=== PATIENT | female | born 1945 | race Caucasian/White ===

== ENCOUNTER → 2017-12-14 12:22 | Outpatient (CLI) | payer MEDICARE, OTHER, SELFPAY ==
--- NOTE | 2017-12-14 | DI.US.S_ITS ---
ULTRASOUND GUIDED BIOPSY LEFT BREAST USING VACUUM DEVICE WITH MARKING DEVICE INSERTED: 12/14/2017 CLINICAL: Left breast mass. PATIENT CONSENT: Risks (minor bleeding, infection, vasovagal reaction and repeat procedure), benefits and alternatives were explained to the patient and written informed consent was obtained. Correlation is made to exams dated: 11/16/2017 mammogram, 11/16/2017 mammogram, 05/18/2017 ultrasound, 04/22/2017 ultrasound, 04/22/2017 mammogram, and 04/08/2017 mammogram - [facility]. An ultrasound guided biopsy using real-time ultrasound was performed for the 0.6 cm x 0.4 cm x 0.4 cm lesion located in the left breast at 3 o'clock anterior depth. The skin was prepped in the usual manner. Local anesthetic was administered to the access site. The abnormality was approached from the lateral aspect. A biopsy needle was placed adjacent to the abnormality under ultrasound guidance. Once the needle was documented to be in the correct location, a specimen was obtained using the Mammotome biopsy system. A clip was inserted into the biopsy cavity. The specimen was sent to the laboratory for pathological analysis. IMPRESSION: ULTRASOUND GUIDED BIOPSY Ultrasound guided biopsy of the 0.6 cm x 0.4 cm x 0.4 cm lesion in the left breast at 3 o'clock anterior depth was successful. Report from pathology states that no tissue was received and therefore no analysis can be performed. Findings were discussed with Enrique, chef's assistant of imaging at [facility]. He will arrange for the patient to return for repeat sampling at no charge. This exam was interpreted at Station ID: [id number]. Bacilio gifford,cj/:12/22/2017 08:37:49
--- NOTE | 2017-12-14 | PATH_ITS ---
[facility] Accession Number: [id number] . 01 Material submitted: . LT BREAST . 01 Clinical history: . 2:30 6 CMFN . 02 Diagnosis: LEFT BREAST NOTIFIED DR. EDWARD (RADIOLOGY) NO SAMPLE IN VIAL. HE WILL INFORM DR BRITO WHOM COLLECTED THE SAMPLE. - JEG 12/17/2017 JEG/12/17/2017 . 02 Electronically signed: . Ebony Benedict MD, Pathologist NPI- [id number] . 01 Gross description: . LT BREAST: Received is a jar containing formalin. No tissue is identified. /TRC /TRC . 02 Pathologist provided ICD-10: N63.0 . 02 CPT . 638177 Performed at: 01 [facility] [address] [id number] MD Joaquín Tse MD Phone: [phone] Performed at: 02 [facility] [address] [place], [place] [id number] MD Thomas Phipps MD Phone: [phone]
--- NOTE | 2017-12-14 | DI.MG.S_ITS ---
UNILATERAL LEFT DIAGNOSTIC MAMMOGRAM POST-NEEDLE BIOPSY: 12/14/2017 CLINICAL: Left breast cyst. Post clip placement. Comparison is made to exams dated: 12/14/2017 ultrasound biopsy, 11/16/2017 mammogram, 04/22/2017 mammogram, and 04/08/2017 mammogram - [facility]. The tissue of the left breast is heterogeneously dense. This may lower the sensitivity of mammography. There is a marker clip in the appropriate position in the left breast at 2 o'clock anterior depth. This marker clip placement is at biopsy site. IMPRESSION: POST PROCEDURE MAMMOGRAM FOR MARKER PLACEMENT There was a successful marker clip placement in the left breast anterior depth. This exam was interpreted at Station ID: [id number]. NOTE: For mammograms, a report in lay terms will be sent to the patient. Approximately 15% of breast malignancies will not be visualized mammographically. In the management of a palpable breast mass, a negative mammogram must not discourage biopsy of a clinically suspicious lesion. Electronically Signed By: Bacilio gifford/:12/14/2017 17:31:36 ACR BI-RADS Category Post-procedure mammogram for marker placement
== END ==
PROVIDERS: PCP Internal Medicine; Visit Provider Internal Medicine
DX: R92.8 Other abnormal and inconclusive findings on diagnostic imaging of breast (principal); N60.02 Solitary cyst of left breast
CPT/HCPCS: 19083; 77065; 88300

== ENCOUNTER → 2017-12-30 13:14 | Outpatient (CLI) | payer MEDICARE, OTHER, SELFPAY ==
--- NOTE | 2017-12-30 | DI.US.S_ITS ---
PROCEDURE: US BX BREAST PERC W VAC DEVICE COMPARISON: [facility], , BX BREAST PERC W VAC DEVICE, 12/14/2017, 12:57. INDICATIONS: LEFT BREAST CYST FINDINGS: IMPRESSION: Dictated by: Cleveland Hernández M.D. on 12/30/2017 at 17:05 Approved by: Cleveland Hernández M.D. on 12/30/2017 at 17:08
--- NOTE | 2017-12-30 | PATH_ITS ---
[facility] Accession Number: [id number] . 01 Material submitted: . LT BREAST 2:30 . 01 Clinical history: . 6CM FROM NIPPLE . 02 Diagnosis: Breast Mass at 2:30, 6 cm from Nipple, Left, Ultrasound Guided Needle Core Biopsy: Benign breast parenchyma with features of fibrocystic change, including cystic dilatation of terminal ductules, stromal fibrosis, ductal hyperplasia without atypia, and apocrine metaplasia. A prominent apocrine cyst (approximately 3 mm in diameter) and a sclerosed papilloma (approximately 2 mm in diameter) are present. Negative for atypia or malignancy. [facility]/12/31/2017 . 02 Electronically signed: . Patty Hickman MD, Pathologist NPI- [id number] . 01 Gross description: . Received one formalin-filled container, labeled with the patient's name, designated breast 2:30 6 cm from nipple. The specimen is received with a plastic filter in the container, sample loose in container. The specimen consists of multiple yellow-thompson portions of tissue and blood which aggregate to 2.0 x 0.6 x 0.3 cm. Collection date: 12/30/2017. Collection time per container: 2:25. Total fixation time: 12 hours, up to 24. (DC:[id number]) /FRR . 02 Pathologist provided ICD-10: N60.12 . 02 CPT . 657030 Performed at: 01 [facility] [address] [id number] MD Joaquín Tse MD Phone: [phone] Performed at: 02 [facility] [address] [place], [place] [id number] MD Thomas Phipps MD Phone: [phone]
--- NOTE | 2017-12-30 | DI.MG.S_ITS ---
UNILATERAL LEFT DIGITAL DIAGNOSTIC MAMMOGRAM POST-NEEDLE BIOPSY: 12/30/2017 CLINICAL: Left breast cyst. Post clip placement. Comparison is made to exams dated: 12/14/2017 mammogram, 11/16/2017 mammogram, and 04/22/2017 mammogram - [facility]. The tissue of the left breast is heterogeneously dense. This may lower the sensitivity of mammography. There is a marker clip in the appropriate position in the left breast at 2 o'clock middle depth. This marker clip placement is at biopsy site. Please note, the previously present marker was removed during the biopsy. IMPRESSION: POST PROCEDURE MAMMOGRAM FOR MARKER PLACEMENT There was a successful marker clip placement in the left breast middle depth. This exam was interpreted at Station ID: [id number]. NOTE: For mammograms, a report in lay terms will be sent to the patient. Approximately 15% of breast malignancies will not be visualized mammographically. In the management of a palpable breast mass, a negative mammogram must not discourage biopsy of a clinically suspicious lesion. Electronically Signed By: Cleveland Hernández M.D. cj/:12/30/2017 17:09:47 ACR BI-RADS Category Post-procedure mammogram for marker placement
== END ==
PROVIDERS: PCP Internal Medicine; Visit Provider Internal Medicine
DX: N60.02 Solitary cyst of left breast (principal); R92.8 Other abnormal and inconclusive findings on diagnostic imaging of breast
CPT/HCPCS: 19083; 77065; 88305

== ENCOUNTER 2018-04-08 20:18 | Inpatient (IN) | payer MEDICARE, OTHER, SELFPAY ==
[2018-04-08 20:33] VITALS: BP 149/87; PULSE 88; RESP 24; TEMP 36.5; O2SAT 96; BMI 21.9
[2018-04-08 21:00] VITALS: BP 144/77; PULSE 92; RESP 19; O2SAT 93
--- NOTE | 2018-04-08 21:00 | ED_ITS ---
HPI - SOB/Dyspnea General Chief Complaint: Shortness of Breath/Dyspnea Stated Complaint: SOB HARD TIME SWALLOWING Time Seen by Provider: 04/08/18 20:32 Source: family and old records reviewed History of Present Illness The patient is a 72-year-old female with history of MS here with her . He has noticed that over the last couple days she has had increased secretions and shallow breathing. He has not noted any fever. She he she has had some difficulty swallowing and has a hard time getting all of her secretions up. He has not noted any significant mental status changes. He is mostly concerned with her breathing. She denies any pain MD Complaint: shortness of breath and cough Related Data Home Medications Medication Instructions Recorded Confirmed citalopram [Celexa] 10 mg PO QDAY #0 09/08/12 04/08/18 levothyroxine [Synthroid] 0.025 mg PO 4XW #0 09/08/12 04/08/18 methenamine hippurate 1 gm PO DAILY #0 09/08/12 04/08/18 polyethylene glycol 3350 [Miralax] 17 gm PO Q DAY #0 09/08/12 04/08/18 ascorbic acid (vitamin C) [Vitamin 1 g PO Q6H 04/08/18 04/08/18 C] baclofen 10 mg PO BID 04/08/18 04/08/18 glatiramer [Copaxone] 40 mg SUBCUT 3XW 04/08/18 04/08/18 levothyroxine 38 mcg PO 3XW 04/08/18 04/08/18 Allergies Allergy/AdvReac Type Severity Reaction Status Date / Time clonazepam [CLONAZEPAM] Allergy Unknown Unverified 10/27/17 11:57 gabapentin [GABAPENTIN] Allergy Unknown Unverified 10/27/17 11:57 hydrochlorothiazide Allergy Unknown Unverified 10/27/17 11:57 [HYDROCHLOROTHIAZIDE] lamotrigine [LAMOTRIGINE] Allergy Unknown Unverified 10/27/17 11:57 levetiracetam [From KEPPRA] Allergy Unknown Unverified 10/27/17 11:57 methylphenidate Allergy Unknown Unverified 10/27/17 11:57 [METHYLPHENIDATE] modafinil [MODAFINIL] Allergy Unknown Unverified 10/27/17 11:57 omega-3 acid ethyl esters Allergy Unknown Unverified 10/27/17 11:57 [OMEGA-3 ACID ETHYL ESTERS] phenazopyridine Allergy Unknown Unverified 10/27/17 11:57 [PHENAZOPYRIDINE] ciprofloxacin [CIPROFLOXACIN] AdvReac Unknown Unverified 10/27/17 11:57 Sulfa (Sulfonamide AdvReac Unknown Unverified 10/27/17 11:57 Antibiotics) [SULFA (SULFONAMIDE ANTIBIOTICS)] Review of Systems Review of Systems All systems reviewed & are unremarkable except as noted in HPI and below Constitutional Denies body ache(s), Denies excessive sweating and Denies fever(s) Cardiovascular Denies chest pain Respiratory Reports as per HPI, Reports cough and Reports excessive phlegm production Gastrointestinal Gastrointestinal: Denies abdominal pain, Denies nausea and Denies vomiting Genitourinary Comments: Chronic [place]ague catheter alternating Keflex with Macrobid every other month, currently on Keflex Integumentary/Breasts Denies pruritus, Denies erythema, Denies rash and Denies wounds Neurologic Reports as per HPI Endocrine Denies excessive sweating PFSH Medical History CVA (cerebral vascular accident) (Acute) Hyperlipidemia (Acute) Hypothyroid (Acute) Multiple sclerosis (Acute) Neurogenic bladder (Acute) Surgical History 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 RESPIRATORY: Decreased breath sounds bilaterally mild rales more on left than right ABDOMEN: Soft, nontender. Normoactive bowel sounds all 4 quadrants. No guarding or rebound. : Montague catheter in place EXTREMITIES: Normal range of motion, no clubbing or edema. Neurovascularly intact NEUROLOGICAL: Alert and oriented x3. Profound lower extremity weakness. At baseline per SKIN: Warm, dry, no laceration, no petechiae, no rashes or lesions. Course Orders Ordered: ED Orders 04/08/18 21:08 Consult to Respiratory Therapy Evaluate & Treat 04/08/18 21:09 XR chest 1V Stat 04/08/18 21:30 B Type Natriuretic Peptide Stat Complete Blood Count AUTO DIFF Stat Comprehensive Metabolic Panel Stat Lactate (Lactic Acid) Stat Magnesium Stat Procalcitonin Stat 04/08/18 22:02 Blood Culture Stat 04/08/18 22:35 Urinalysis and Microscopic Stat Urine Culture Stat Discontinued Medications Ceftriaxone Sodium/Dextrose (Rocephin) 1 gm in 50 mls @ 100 mls/hr IV NOW ONE Stop: 04/08/18 22:53 Last Infusion: 04/09/18 00:07 Dose: 0 mls/hr Admin: 04/08/18 23:35 Dose: 100 mls/hr Azithromycin 500 mg/ Dextrose 250 mls @ 250 mls/hr IV NOW ONE Stop: 04/08/18 22:25 Last Admin: 04/09/18 01:30 Dose: 250 mls/hr Vital Signs - 8 hr 04/08/18 22:00 04/08/18 23:00 04/09/18 00:03 Temperature Pulse Rate 91 H 92 H 88 Respiratory Rate 18 19 18 Blood Pressure Blood Pressure [Left Arm] 154/83 H 162/84 H 157/87 H Pulse Oximetry 94 95 95 04/09/18 00:20 04/09/18 05:15 Temperature 98.4 F 97.5 F L Pulse Rate 86 87 Respiratory Rate 16 17 Blood Pressure 157/94 H 128/71 Blood Pressure [Left Arm] Pulse Oximetry 94 93 MDM - SOB/Dyspnea Lab Data Attestation: I reviewed the patient's lab results. Result diagrams: 04/08/18 21:30 04/08/18 21:30 Lab Results 04/08/18 04/08/18 04/08/18 Range/Units 21:30 21:30 21:30 WBC 11.2 H (4.5-11.0) X10^3/uL RBC 4.21 (4.0-5.2) X10^6/uL Hgb 15.1 (12.0-16.0) g/dL Hct 43.9 (36-46) % MCV 104.4 H (80-100) fL MCH 35.9 H (26-34) PG MCHC 34.4 (30-36) % RDW 13.9 (11.6-14.8) % Plt Count 154 (150-400) X10^3/uL Neut % (Auto) 53.1 (50-75) % Lymph % (Auto) 35.2 (25-40) % [place] % (Auto) 8.4 (3-14) % Eos % (Auto) 2.6 (2-4) % Baso % (Auto) 0.7 (0-2) % Neut # (Auto) 6000 H (9086-6185) /uL Sodium 143 (137-145) mmol/L Potassium 4.3 (3.4-5.1) mmol/L Chloride 99 (98-107) mmol/L Carbon Dioxide 33 H (22-32) mmol/L BUN 16 (7-17) mg/dL Creatinine 0.80 (0.52-1.04) mg/dL Estimated GFR > 60.0 (>60) mL/min BUN/Creatinine Ratio 20.0 (6-22) Glucose 132 H (80-110) mg/dL Lactate (0.7-2.1) mmol/L Calcium 9.8 (8.4-10.2) mg/dL Magnesium 1.7 (1.6-2.3) mg/dL Total Bilirubin 0.3 (0.2-1.3) mg/dL AST 47 H (14-36) IU/L ALT 49 (9-52) IU/L Alkaline Phosphatase 129 H (38-126) U/L B-Natriuretic Peptide 41.3 (<100) Total Protein 7.7 (6.3-8.2) g/dL Albumin 4.4 (3.5-5.0) g/dL Globulin 3.3 (1.7-4.1) g/dL Albumin/Globulin Ratio 1.3 (1.0-2.8) Procalcitonin < 0.05 (<0.5) ng/mL Urine Color Urine Appearance Urine pH (4.5-8.0) Ur Specific [place] (1.000-1.035) Urine Protein (Negative) Urine Glucose (UA) (Normal) g/dL Urine Ketones (NEGATIVE) Urine Occult Blood (Negative) Urine Nitrate (Negative) Urine Bilirubin (NEGATIVE) Urine Urobilinogen (0.2) E.U./dL Ur Leukocyte Esterase (NEGATIVE) Urine RBC (0-5/HPF) Urine WBC (0-5/HPF) Ur Squamous Epith Cells Urine Bacteria (None) Ur Culture Indicated? Micro UA Comment 04/08/18 04/08/18 Range/Units 21:30 22:35 WBC (4.5-11.0) X10^3/uL RBC (4.0-5.2) X10^6/uL Hgb (12.0-16.0) g/dL Hct (36-46) % MCV (80-100) fL MCH (26-34) PG MCHC (30-36) % RDW (11.6-14.8) % Plt Count (150-400) X10^3/uL Neut % (Auto) (50-75) % Lymph % (Auto) (25-40) % [place] % (Auto) (3-14) % Eos % (Auto) (2-4) % Baso % (Auto) (0-2) % Neut # (Auto) (1549-8176) /uL Sodium (137-145) mmol/L Potassium (3.4-5.1) mmol/L Chloride (98-107) mmol/L Carbon Dioxide (22-32) mmol/L BUN (7-17) mg/dL Creatinine (0.52-1.04) mg/dL Estimated GFR (>60) mL/min BUN/Creatinine Ratio (6-22) Glucose (80-110) mg/dL Lactate 1.6 (0.7-2.1) mmol/L Calcium (8.4-10.2) mg/dL Magnesium (1.6-2.3) mg/dL Total Bilirubin (0.2-1.3) mg/dL AST (14-36) IU/L ALT (9-52) IU/L Alkaline Phosphatase (38-126) U/L B-Natriuretic Peptide (<100) Total Protein (6.3-8.2) g/dL Albumin (3.5-5.0) g/dL Globulin (1.7-4.1) g/dL Albumin/Globulin Ratio (1.0-2.8) Procalcitonin (<0.5) ng/mL Urine Color Yellow Urine Appearance Cloudy Urine pH 7.5 (4.5-8.0) Ur Specific [place] 1.015 (1.000-1.035) Urine Protein Negative (Negative) Urine Glucose (UA) Negative (Normal) g/dL Urine Ketones Negative (NEGATIVE) Urine Occult Blood 1+ H (Negative) Urine Nitrate Negative (Negative) Urine Bilirubin Negative (NEGATIVE) Urine Urobilinogen 0.2 (0.2) E.U./dL Ur Leukocyte Esterase 3+ H (NEGATIVE) Urine RBC 0-1/hpf (0-5/HPF) Urine WBC 30-100/hpf H (0-5/HPF) Ur Squamous Epith Cells 0-1 /hpf Urine Bacteria Many (>30) H (None) Ur Culture Indicated? Specimen cultured Micro UA Comment Not Reportable Imaging Data Chest x-ray: My impression: [address] [address] XRay Report Signed Patient: Rosa Reynolds MR#: [id number] : 1945 Acct:[id number] Age/Sex: 72 / F Date of Service: 04/08/18 Loc: ED Accession Number: [id number] Procedure: XR chest 1V Ordering Provider: Bridget Lucero D.O. PROCEDURE: XR CHEST 1V INDICATIONS: cough shortness of breath TECHNIQUE: One view of the chest was acquired. COMPARISON: [facility], , CHEST 1 VIEW, 10/09/2015, 7:44. FINDINGS: Surgical changes and devices: Surgical clips in the left upper quadrant of the abdomen. Lungs and pleura: No pleural effusions or pneumothorax. Mild interstitial prominence is noted which has a worsened interval since prior examination. Findings nonspecific may be related to pulmonary edema or atypical pneumonia. Mediastinum: Mediastinal contours appear normal. Heart size is normal. Bones and chest wall: No suspicious bony lesions. Overlying soft tissues appear unremarkable. IMPRESSION: Mild interstitial prominence. Finding is nonspecific, but can be related to pulmonary edema or atypical pneumonia. Dictated by: Sara Bullock MD, PhD on 04/08/2018 at 21:51 MDM Narrative Medical decision making narrative: Patient has multiple sclerosis and a weak cough. She is not need is functioning in the ED a however the has noticed over last couple days she is not able to get all of her secretions out. She is not hypoxic. She has had increased sputum production as, cough and shallow breathing. X-ray does confirm probable atypical pneumonia. She does not appear septic, minimal leukocytosis afebrile and normal lactic acid, she has not needed suctioning in the ED. However she has multiple comorbidities and will likely need close monitoring. I spoke with Dr. Johnson, he agrees with inpatient admission. Discharge Plan Departure Patient Disposition: Admitted As Inpatient Clinical Impression: Atypical pneumonia Discharge Date/Time: 04/09/18 00:05 Interventions: ED Discharge Assessment Last Done: 04/09/18 00:04 Admit Date/Time: 04/08/18 23:32 Admit Provider: Sharath Roberson
--- NOTE | 2018-04-08 21:09 | DI.RAD.S_ITS ---
PROCEDURE: XR CHEST 1V INDICATIONS: cough shortness of breath TECHNIQUE: One view of the chest was acquired. COMPARISON: [facility], , CHEST 1 VIEW, 10/09/2015, 7:44. FINDINGS: Surgical changes and devices: Surgical clips in the left upper quadrant of the abdomen. Lungs and pleura: No pleural effusions or pneumothorax. Mild interstitial prominence is noted which has a worsened interval since prior examination. Findings nonspecific may be related to pulmonary edema or atypical pneumonia. Mediastinum: Mediastinal contours appear normal. Heart size is normal. Bones and chest wall: No suspicious bony lesions. Overlying soft tissues appear unremarkable. IMPRESSION: Mild interstitial prominence. Finding is nonspecific, but can be related to pulmonary edema or atypical pneumonia. Dictated by: Sara Bullock MD, PhD on 04/08/2018 at 21:51 Approved by: Sara Bullock MD, PhD on 04/08/2018 at 21:52
[2018-04-08 21:41] LABS: Add Manual Diff / Slide Review NO; Basophils Percent Auto 0.7 % (0-2); Eosinophils Percent Auto 2.6 % (2-4); Hematocrit 43.9 % (36-46); Hemoglobin 15.1 g/dL (12.0-16.0); Lymphocytes Percent Auto 35.2 % (25-40); Mean Corpuscular HGB Conc 34.4 % (30-36); Mean Corpuscular Hemoglobin 35.9 PG (26-34); Mean Corpuscular Volume 104.4 fL (80-100); Monocytes Percent Auto 8.4 % (3-14); Neutrophils Absolute Auto 6000 /uL (3000-5900); Neutrophils Percent Auto 53.1 % (50-75); Platelet Count 154 X10^3/uL (150-400); Red Blood Cell Count 4.21 X10^6/uL (4.0-5.2); Red Cell Distribution Width 13.9 % (11.6-14.8); White Blood Cell Count 11.2 X10^3/uL (4.5-11.0)
[2018-04-08 21:51] LABS: Alanine Aminotransferase 49 IU/L (9-52); Albumin 4.4 g/dL (3.5-5.0); Albumin Globulin Ratio 1.3 (1.0-2.8); Alkaline Phosphatase 129 U/L (38-126); Aspartate Aminotransferase 47 IU/L (14-36); Bilirubin Total 0.3 mg/dL (0.2-1.3); Blood Urea Nitrogen 16 mg/dL (7-17); Calcium 9.8 mg/dL (8.4-10.2); Carbon Dioxide 33 mmol/L (22-32); Chloride 99 mmol/L (98-107); Estimated Glomerular Filt Rate > 60.0 mL/min (>60); Globulin 3.3 g/dL (1.7-4.1); Glucose 132 mg/dL (80-110); HEMOLYSIS 19 (0-50); Lactate (Lactic Acid) 1.6 mmol/L (0.7-2.1); Magnesium 1.7 mg/dL (1.6-2.3); Potassium 4.3 mmol/L (3.4-5.1); Sodium 143 mmol/L (137-145); Total Protein 7.7 g/dL (6.3-8.2)
[2018-04-08 22:00] VITALS: BP 154/83; PULSE 91; RESP 18; O2SAT 94
[2018-04-08 22:04] LABS: B Type Natriuretic Peptide 41.3 (<100)
[2018-04-08 22:12] LABS: Procalcitonin < 0.05 ng/mL (<0.5)
[2018-04-08 22:55] LABS: Appearance Urine UA CLOUDY; Bilirubin Urine UA NEGATIVE (NEGATIVE); Color Urine UA YELLOW; Glucose Urine UA NEGATIVE (Normal); Ketones Urine UA NEGATIVE (NEGATIVE); Leukocyte Esterase Urine UA 3+ (NEGATIVE); Nitrite Urine UA Negative (Negative); Occult Blood Urine UA 1+ (Negative); Protein Urine UA NEGATIVE (Negative); Specific Gravity Urine UA 1.015 (1.000-1.035); Urobilinogen Urine UA 0.2 E.U./dL (0.2); pH Urine UA 7.5 (4.5-8.0)
[2018-04-08 23:00] VITALS: BP 162/84; PULSE 92; RESP 19; O2SAT 95
[2018-04-08 23:02] LABS: Bacteria Urine Many (>30); Culture Indicated Urine Specimen Cultured; RBC Urine 0-1/HPF (0-5/HPF); Squamous Epithelial Cell Urine 0-1 /HPF; WBC Urine 30-100/HPF (0-5/HPF)
[2018-04-08] MEDS: CEFTRIAXONE 1 GM/50 ML FROZ.PIGGY IV (23:35)
[2018-04-08 23:41] VITALS: BMI 21.9
[2018-04-09] VITALS (9 sets, daily range): BP systolic 119–157; BP diastolic 71–94; PULSE 75–88; RESP 14–18; TEMP 36.3–36.9; O2SAT 91–95; BMI 21.9
[2018-04-09] MEDS: AZITHROMYCIN 500 MG in DEXTROSE 5% IN WATER 250 ML IV (01:30)
[2018-04-09 08:27] LABS: Hematocrit 42.2 % (36-46); Hemoglobin 14.5 g/dL (12.0-16.0); Mean Corpuscular HGB Conc 34.4 % (30-36); Mean Corpuscular Hemoglobin 35.5 PG (26-34); Mean Corpuscular Volume 103.2 fL (80-100); Platelet Count 144 X10^3/uL (150-400); Red Blood Cell Count 4.09 X10^6/uL (4.0-5.2); Red Cell Distribution Width 13.6 % (11.6-14.8); White Blood Cell Count 11.5 X10^3/uL (4.5-11.0)
[2018-04-09 08:37] LABS: BUN Creatinine Ratio 18.8 (6-22); Blood Urea Nitrogen 15 mg/dL (7-17); Calcium 9.9 mg/dL (8.4-10.2); Carbon Dioxide 31 mmol/L (22-32); Chloride 102 mmol/L (98-107); Estimated Glomerular Filt Rate > 60.0 mL/min (>60); Glucose 101 mg/dL (80-110); HEMOLYSIS < 15 (0-50); Sodium 143 mmol/L (137-145)
[2018-04-09 08:56] LABS: B Type Natriuretic Peptide 60.3 (<100)
[2018-04-09 08:59] LABS: Neutrophils Percent Auto 52.5 % (50-75)
[2018-04-09 09:00] LABS: Add Manual Diff / Slide Review NO; Basophils Percent Auto 0.9 % (0-2); Eosinophils Percent Auto 0.9 % (2-4); Lymphocytes Percent Auto 38.6 % (25-40); Monocytes Percent Auto 7.1 % (3-14); Neutrophils Absolute Auto 6 /uL (3000-5900)
--- NOTE | 2018-04-09 09:21 | PC.NURSE ---
late admit note 11-7 shift: pt to room 220 via stretcher w/2 assist into bed. pt w/eyes open, makes eye contact, answers simple direct questions but not able to give history or answer questions for admission form.no family present. posiitioned for comfort, initially no pain reported. iv LFA patent set up for Azithromycin infusion,no iv fluids ordered. body/extremities stiff r/t severe MS, speech is mostly clear, responses delayed, slow quiet voice.
[2018-04-09] MEDS: SCOPOLAMINE 1 PATCH TOP (10:16)
--- NOTE | 2018-04-09 10:20 | PC.NURSE ---
Pt resting in bed on her left side with head of bed elevated at 31 degrees. Pt denies needs at this time. Scopalamine patch placed behind left ear. O2 sat 91% on RA.
--- NOTE | 2018-04-09 13:01 | CM.DANOTE ---
Addendum entered by BENJAMIN Lorenz 04/09/18 15:14: ADD: Per RT, planning to call [employer] to determine if pt meets criteria for a cough assist device for home use per pt and spouse needs and request. RT will follow for ongoing needs. BF Original Note: Patient is a 72 year old female who was admitted on 04/08/18 for SOB, Swallow issues. Pt has [place] and [place] for insurance and her PCP is Dr. South. EMR was reviewed. Per MD, pt has significant multiple sclerosis at baseline and likely has some pneumonia and is mentally intact. MD had long discussion with spouse regarding possible need for tube feeding/PEG pending ST swallow eval and aspiration and spouse planning to have further discussion with pt regarding future plans for feeding needs and goals of care to help with deciding on possible comfort care in the future if pt is not able to maintain feedings without the use of feeding support. SW attempted bedside assessment but pt was sleeping very soundly and spouse was not bedside but plans to be back this afternoon. SW called spouse at home ([phone]) and explained role and he confirmed that they live at home in [place] and he is pt's primary Caregiver and helps her with most ADL's. Spouse states that he is pt's DPOA and will provide copy for pt's chart. Spouse denies any other services in place like HH or private pay caregivers and states he takes care of everything in the home and for the patient. Spouse is waiting for ST swallow eval to determine d/c needs and he seems very capable and supportive. Plan: SW to follow closely for ST swallow eval towards determining d/c planning needs. Spouse currently prefers pt to d/c home when medically stable but may be open to other services if needed. SW needs unclear at this time. BENJAMIN Lorenz Discharge Planning/Care Management CM Discharge Assessment Start: 04/09/18 12:57 Freq: Status: Active Protocol: Document 04/09/18 12:57 BF (Rec: 04/09/18 13:00 [id number]) Discharge Planning Assessment Assigned Logistics Engineering Manager BENJAMIN Duff DPOA/Assigned Designee Name Ijeoma Reynolds Contact Information [phone] Advance Directives? Yes: will bring in History Provided By Significant Other Medical Record Has Patient been admitted in last 30 No days? Prior Living Arrangements House Household Members spouse Type of transporation used prior to Relies on Others admit Comment Patient with significant M.S. and spouse provides most ADL support Independent with ADL's No: Spouse is pt's caregiver Is patient alert and oriented? Yes Needs Assistance With Bathing Eating Meal Prep Managing Medications Home Chores / Shopping Caregiver for Another No DME Already Rented / Owned Bath Bench Wheelchair FWW / Walker Comment Preference is home. Waiting ST swallow eval Barriers to Discharge Yes Discharge Plan Home Additional Comment Waiting for ST eval to determine d/c needs for feeding, etc.. Whiteboard Updated in Patient Room with No name and ext. # of Logistics Engineering Manager Comment Spoke with spouse via phone, whiteboard still to be updated . Review Status In Process Please Provide Date Initial DC 04/09/18 Assessment Was Performed Next Review Type Continued Stay Review
--- NOTE | 2018-04-09 15:01 | ST.IPIE ---
Care Team Visit Care Team Role Provider Type Rivera South MD Primary Care Provider Physician Specialty: Internal Medicine Address: [address] [place] [address] Email: Bridget Lucero DO Emergency Provider Physician Specialty: Emergency Medicine Address: [address] [place] [address] Email: Sharath Roberson MD Admit Provider Physician Attending Provider Specialty: Internal Medicine Address: [address] [place] [address] Email: Past Medical History (Last Updated 04/09/18 @ 05:27 by Bridget Lucero DO) CVA (cerebral vascular accident) (Acute Medical) Hyperlipidemia (Acute Medical) Hypothyroid (Acute Medical) Multiple sclerosis (Acute Medical) Neurogenic bladder (Acute Medical) ST IP Initial Evaulation Report APPRENTICE [facility] THIRD STEP Clinical Swallow Evaluation Start: 04/09/18 14:30 Freq: Status: Active Protocol: Document 04/09/18 14:31 LNK (Rec: 04/09/18 15:01 LNK [id number]) Clinical Swallow Evaluation Session Time Visit Start Time 13:15 Visit Stop Time 13:50 Total Visit Minutes [address] Johnson Reason for Referral Difficulty with swallowing Setting Assessment Location Acute Care Visit Type Note Type Initial Evaluation Next Note Type Next Note Type Re-Evaluation Patient Information Identification Type Name ID Wristband History The patient is a 72-year-old female with history of MS here with her . He has noticed that over the last couple days she has had increased secretions and shallow breathing. He has not noted any fever. She he she has had some difficulty swallowing and has a hard time getting all of her secretions up. Medical History CVA (cerebral vascular accident) (Acute) Hyperlipidemia (Acute) Hypothyroid (Acute) Multiple sclerosis (Acute) Neurogenic bladder (Acute) Subjective Observations Pt in bed sleeping. Easily awakened and agreed to swallow assessment. Pt presented with hyper tonic body position with head back and neck extended. When asked if she could move her head forward, she indicated I am stuck. Pt positioned in upright position. Evaluation Liquids Trialed Ice Chips Thin [place] Honey Solids Trialed Puree Administration Type Tea Spoon Dependent Feeding Oral Impairment Severely Impaired Oral Strategies Other Oral Phase Comments Pt demonstrated slow delayed movements for OM assessment. No gag reflex observed. Diadochokinesis was slow and delayed to begin. Pt has natural teeth in good condition. Pt was presented with an ice chip, which she chewed and swallowed. Teaspoons of thin nectar and honey thick liquid provided. Pt unable to cup tongue to collect liquid. All liquids rolled over tongue body to the pharynx. No control of liquids observed. Presentation of puree texture resulted in delayed onset of mastication with applesauce. Slow mastication with oral residue observed after swallow . Poor bolus formation and control. Pt eventually cleared oral residue. Pharyngeal Impairment Profoundly Impaired Pharyngeal Phase Comments Pt's swallow response was delayed and presented with audible gulpy swallow, indicating poor airway protection. Incomplete laryngeal elevation with limited hyoid excursion forward. pt's head position and the rapid flow of the over the tongue body was concerning. With liquid presented with a toothette, the pt appeared to swallow. Ice chip presented resulted in an aspirated episode. Face turned red. Pt demonstrated delayed cough response which was weak and non-productive. All trials appeared to be swallowed without cough; however vocal quality was wet. She had a gurgly non- productive cough following cue to cough. Findings Dysphagia Type Severe oropharyngeal dysphagia Rehabilitation Potential Poor Impressions Pt presented with severe oropharyngeal dysphagia secondary to advanced MS. Suspect silent aspiration of PO intake as well as pt's secretions. Recommend MBSS assessment to r/o silent aspiration. Unfortunately, radiology department is closed on weekends. Will continue with NPO status until MBSS can be completed Wednesday. Diet Recommendations Liquids Order NPO Diet Order NPO Treatment Plan Appropriate for Therapy No
--- NOTE | 2018-04-09 15:28 | P.HP_ITS ---
History of Present Illness Chief complaint: SOB HARD TIME SWALLOWING Narrative: The patient is a 72-year-old female with multiple sclerosis since 1985 and presents on admission with increased swallowing difficulty. Her dates the problem back to couple years ago however the past week it has become worse. In the past 2 days she has had increasing hacking cough and has had difficulty in coughing up the mucus. The states that she feels as though which she swallowed feels stuck in her throat at times. She has not had any increased shortness of breath tachypnea labored breathing. Discussion regarding PEG tubes was undertaken with the he states that she has had 2 of these in the past. For further discussion of PEG tube see assessment below Because of her increasing swelling difficulty she presented to the ED. In the ED her blood pressure is 149/87 pulse 88 respirations 24 temperature was 97.7? O2 sat was 96. Her CBC did reveal an elevated white count of 11.2. Her Chem panel revealed a AST of 47 alk-phos 129 and a glucose of 132. 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) Family & Social History Social History: household members spouse Prior Living Arrangements House lives independently No caregiver/support person Yes: Safety & Behavioral: Feels Safe in Current Yes Environment Been Physically Hurt or No Threatened By a Person Suicidal Ideation Description None Suicide Plan Description No Plan Tobacco & Substance use: Tobacco type cigarettes Smoking Status Former smoker alcohol intake never Substance Use Type does not use Meds Home Medications Medication Instructions Recorded Confirmed Type citalopram [Celexa] 10 mg PO QDAY #0 09/08/12 04/08/18 History levothyroxine [Synthroid] 0.025 mg PO 4XW #0 09/08/12 04/08/18 History methenamine hippurate 1 gm PO DAILY #0 09/08/12 04/08/18 History polyethylene glycol 3350 [Miralax] 17 gm PO Q DAY #0 09/08/12 04/08/18 History ascorbic acid (vitamin C) [Vitamin 1 g PO Q6H 04/08/18 04/08/18 History C] baclofen 10 mg PO BID 04/08/18 04/08/18 History glatiramer [Copaxone] 40 mg SUBCUT 3XW 04/08/18 04/08/18 History levothyroxine 38 mcg PO 3XW 04/08/18 04/08/18 History cephalexin 250 mg PO DAILY 04/09/18 04/09/18 History cholecalciferol (vitamin D3) 2,000 unit PO DAILY 04/09/18 04/09/18 History [Vitamin D3] furosemide 20 mg PO DAILY 04/09/18 04/09/18 History ibuprofen-diphenhydramine cit 1 cap PO BEDTIME 04/09/18 04/09/18 History [Advil PM] melatonin 5 mg PO BEDTIME 04/09/18 04/09/18 History multivitamin,tx-minerals 1 cap PO DAILY 04/09/18 04/09/18 History [Multi-Vitamin HP/Minerals] nitrofurantoin monohyd/m-cryst 100 mg PO DAILY 04/09/18 04/09/18 History pravastatin 20 mg PO DAILY 04/09/18 04/09/18 History Allergies Allergy/AdvReac Type Severity Reaction Status Date / Time omega-3 acid ethyl esters Allergy Intermediate acid Verified 04/09/18 09:03 [OMEGA-3 ACID ETHYL ESTERS] reflux reaction gabapentin [GABAPENTIN] Allergy Mild Drowsy Verified 04/09/18 09:03 clonazepam [CLONAZEPAM] Allergy Unknown Verified 04/09/18 09:03 hydrochlorothiazide Allergy Unknown Unverified 10/27/17 11:57 [HYDROCHLOROTHIAZIDE] lamotrigine [LAMOTRIGINE] Allergy Unknown Verified 04/09/18 09:03 levetiracetam [From KEPPRA] Allergy Unknown Verified 04/09/18 09:03 methylphenidate Allergy Unknown Unverified 10/27/17 11:57 [METHYLPHENIDATE] modafinil [MODAFINIL] Allergy Unknown Verified 04/09/18 09:03 phenazopyridine Allergy Unknown Verified 04/09/18 09:03 [PHENAZOPYRIDINE] Sulfa (Sulfonamide AdvReac Severe Hives Verified 04/09/18 09:03 Antibiotics) [SULFA (SULFONAMIDE ANTIBIOTICS)] ciprofloxacin [CIPROFLOXACIN] AdvReac Intermediate Verified 04/09/18 09:03 Review of Systems Review of Systems All systems reviewed & are unremarkable except as noted in HPI and below Exam Vital Signs (past 8 hours): - 04/09/18 07:50 04/09/18 11:45 Temperature 97.4 F L 97.7 F Pulse Rate 84 83 Respiratory Rate 14 14 Blood Pressure 142/78 H 119/73 Pulse Oximetry 91 91 Oxygen Delivery Method Room Air Narrative Exam Narrative: General frail cachectic chronically ill-appearing 72-year-old female in no acute distress HEENT normocephalic atraumatic extraocular movement was intact pupils were equal round reactive sclera were nonicteric fundi were not visualized oropharynx was clear Neck supple without thyromegaly bruits or jugular venous distention Respiratory on anterior auscultation no rales rhonchi or wheezes Cardiovascular regular rhythm S1-S2 was normal there are no lifts heaves rubs murmurs present Abdomen benign bowel sounds active Extremities decreased muscular tone and muscle wasting. Arms chronic extension with hands with contractures Neurologic marked generalized weakness secondary to her multiple sclerosis Psychiatric flat affect Objective Labs Result Diagrams: 04/09/18 08:20 04/09/18 08:20 Labs: Laboratory Results - last 24 hr 04/08/18 04/08/18 04/08/18 21:30 21:30 21:30 WBC 11.2 H RBC 4.21 Hgb 15.1 Hct 43.9 MCV 104.4 H MCH 35.9 H MCHC 34.4 RDW 13.9 Plt Count 154 Neut % (Auto) 53.1 Lymph % (Auto) 35.2 [place] % (Auto) 8.4 Eos % (Auto) 2.6 Baso % (Auto) 0.7 Neut # (Auto) 6000 H Plt Morphology Comment RBC Morphology Sodium 143 Potassium 4.3 Chloride 99 Carbon Dioxide 33 H BUN 16 Creatinine 0.80 Estimated GFR > 60.0 BUN/Creatinine Ratio 20.0 Glucose 132 H Lactate Calcium 9.8 Magnesium 1.7 Total Bilirubin 0.3 AST 47 H ALT 49 Alkaline Phosphatase 129 H B-Natriuretic Peptide 41.3 Total Protein 7.7 Albumin 4.4 Globulin 3.3 Albumin/Globulin Ratio 1.3 Procalcitonin < 0.05 Urine Color Urine Appearance Urine pH Ur Specific [place] Urine Protein Urine Glucose (UA) Urine Ketones Urine Occult Blood Urine Nitrate Urine Bilirubin Urine Urobilinogen Ur Leukocyte Esterase Urine RBC Urine WBC Ur Squamous Epith Cells Urine Bacteria Ur Culture Indicated? Micro UA Comment 04/08/18 04/08/18 04/09/18 21:30 22:35 08:20 WBC 11.5 H RBC 4.09 Hgb 14.5 Hct 42.2 MCV 103.2 H MCH 35.5 H MCHC 34.4 RDW 13.6 Plt Count 144 L Neut % (Auto) 52.5 Lymph % (Auto) 38.6 [place] % (Auto) 7.1 Eos % (Auto) 0.9 L Baso % (Auto) 0.9 Neut # (Auto) 6 L Plt Morphology Comment ... RBC Morphology Not Reportable Sodium Potassium Chloride Carbon Dioxide BUN Creatinine Estimated GFR BUN/Creatinine Ratio Glucose Lactate 1.6 Calcium Magnesium Total Bilirubin AST ALT Alkaline Phosphatase B-Natriuretic Peptide 60.3 Total Protein Albumin Globulin Albumin/Globulin Ratio Procalcitonin Urine Color Yellow Urine Appearance Cloudy Urine pH 7.5 Ur Specific [place] 1.015 Urine Protein Negative Urine Glucose (UA) Negative Urine Ketones Negative Urine Occult Blood 1+ H Urine Nitrate Negative Urine Bilirubin Negative Urine Urobilinogen 0.2 Ur Leukocyte Esterase 3+ H Urine RBC 0-1/hpf Urine WBC 30-100/hpf H Ur Squamous Epith Cells 0-1 /hpf Urine Bacteria Many (>30) H Ur Culture Indicated? Specimen cultured Micro UA Comment Not Reportable 04/09/18 08:20 WBC RBC Hgb Hct MCV MCH MCHC RDW Plt Count Neut % (Auto) Lymph % (Auto) [place] % (Auto) Eos % (Auto) Baso % (Auto) Neut # (Auto) Plt Morphology Comment RBC Morphology Sodium 143 Potassium 4.0 Chloride 102 Carbon Dioxide 31 BUN 15 Creatinine 0.80 Estimated GFR > 60.0 BUN/Creatinine Ratio 18.8 Glucose 101 Lactate Calcium 9.9 Magnesium Total Bilirubin AST ALT Alkaline Phosphatase B-Natriuretic Peptide Total Protein Albumin Globulin Albumin/Globulin Ratio Procalcitonin Urine Color Urine Appearance Urine pH Ur Specific [place] Urine Protein Urine Glucose (UA) Urine Ketones Urine Occult Blood Urine Nitrate Urine Bilirubin Urine Urobilinogen Ur Leukocyte Esterase Urine RBC Urine WBC Ur Squamous Epith Cells Urine Bacteria Ur Culture Indicated? Micro UA Comment PROCEDURES CHEST X-RAY: Mild interstitial prominence. Findings is nonspecific but could be related to pulmonary edema or atypical pneumonia URINE CULTURE TWO ORGANISMS GROWING BOTH GREATER THAN 100,000 COLONIES OF GRAM-NEGATIVE BACILLI AND SENSITIVITIES TO FOLLOW Assessment & Plan Plan: Assessment/Plan Narrative: 1. Pneumonia Doubt that the patient has pneumonia the findings are non specific, she is afebrile, her white count is slightly elevated and could be related to her urinary tract infection. Therefore were discontinue antibiotics related to pneumonia. Plan No further Zithromax Continue Rocephin but this will be for treatment of her UTI 2. Dysphagia This is related to the patient's multiple sclerosis. I have had a goals of care conversation with the regarding PEG tube. Please see goals of care discussion below Plan Speech pathology to evaluate for swallowing eval 3. Urinary tract infection Urine cultures returned positive for 2 [place] is a gram-negative organisms. Will continue the patient on Rocephin 1 g IV until identification is no Plan Rocephin 1 g IV daily 4. Urinary tract suppressive therapy As it appears patient has a new urinary tract infection will discontinue her outpatient therapy Plan Hold Keflex 250 mg p.o. daily Hold nitro for Romel tone 100 mg p.o. daily Hold methenamine hippurate 5. Multiple sclerosis Plan Continue Copaxone 40 mg subcu 3 times a week 6. Hypothyroidism Plan Continue on her outpatient levothyroxine 0.025 mg 4 times a week and levothyroxine 38 mcg p.o. 3 times per week Check TSH and free T4 in a.m. 7. Neurogenic bladder Quality VTE Deep Vein Thrombosis/Pulmonary Embolism Present on Admission: No
[2018-04-09] MEDS: CEFTRIAXONE 1 GM/50 ML FROZ.PIGGY IV (16:49)
[2018-04-09] MEDS: DEXTROSE 5%-0.9% NS 1,000 ML 100 ML IV (16:49)
[2018-04-10] VITALS (10 sets, daily range): BP systolic 139–172; BP diastolic 66–86; PULSE 58–69; RESP 17–20; TEMP 36.1–36.9; O2SAT 92–95
[2018-04-10] MEDS: DEXTROSE 5%-0.9% NS 1,000 ML 100 ML IV ×2 (03:23→14:02)
[2018-04-10] MEDS: CEFTRIAXONE 1 GM/50 ML FROZ.PIGGY IV ×2 (05:39→16:39)
[2018-04-10] MEDS: ENOXAPARIN 40 MG/0.4 ML SYRINGE SUBCUT (08:53)
[2018-04-10] MEDS: LEVOTHYROXINE INJ 100 MCG VIAL 50 MCG IV (08:53)
--- NOTE | 2018-04-10 09:57 | CM.DPC ---
DCP/continued. Patient is pending MBSS for wednesday morning and remains NPO. Per MD: patient has disclosed that she would not like to have peg placed and if peg needed possible hospice consult. MD to communicate wishes to spouse and have follow-up conversation with spouse and patient following MBSS. Plan: SW to follow up after MBSS to determine needs. If patient requires tube feedings and declines likely hospice referral.
--- NOTE | 2018-04-10 11:27 | PM.PN.1 ---
Subjective Interval history: Patient has had no new complaints no new problems in the past 24 hr. She denies nausea vomiting abdominal pain chest pain or shortness of breath Exam Vital Signs (past 8 hours): - 04/10/18 05:00 04/10/18 07:25 04/10/18 10:42 Temperature 98.4 F Pulse Rate 68 Respiratory Rate 17 20 Blood Pressure 147/71 H Pulse Oximetry 92 93 93 04/10/18 10:44 Temperature Pulse Rate Respiratory Rate Blood Pressure Pulse Oximetry 93 Oxygen Delivery Method Nasal Cannula Oxygen Flow Rate 0 Narrative Exam Narrative: General frail cachectic chronically ill-appearing 72-year-old female in no acute distress HEENT normocephalic atraumatic extraocular movement was intact pupils were equal round reactive sclera were nonicteric fundi were not visualized oropharynx slightly thickened oral secretions Neck supple without thyromegaly bruits or jugular venous distention Respiratory on anterior auscultation no rales rhonchi or wheezes Cardiovascular regular rhythm S1-S2 was normal there are no lifts heaves rubs murmurs present Abdomen benign bowel sounds active Extremities decreased muscular tone and muscle wasting present. Arms chronic extension with hands with contractures Neurologic marked generalized weakness secondary to her multiple sclerosis Psychiatric flat affect Objective Labs Result Diagrams: 04/09/18 08:20 04/09/18 08:20 Assessment & Plan Plan: Assessment/Plan Narrative: 1. Pneumonia As stated yesterday doubt that the patient has pneumonia. The findings on chest x-ray are non specific and that localizes 1 would expect for pneumonia. She is afebrile. She does not have any respiratory problems. There is no increased cough or sputum production. There is no tachypnea her respiratory rate is 17-20 Plan No further therapy or workup indicated 2. Dysphagia This is related to the patient's multiple sclerosis. I have had a goals of care conversation with the the patient and this morning. Please see goals of care discussion below Plan NPO as per speech pathology for now Patient for modified barium swallow in a.m. 3. Urinary tract infection Urine cultures returned positive for 2 colonies gram-negative organisms. Blood cultures are no growth to date. Will continue the patient on Rocephin 1 g IV until identification has returned Plan Follow urine cultures Rocephin 1 g IV daily 4. Urinary tract suppressive therapy As it appears patient has a new urinary tract infection will discontinue her outpatient therapy Plan Holding her outpatient Keflex 250 mg p.o. daily Holding her nitrofurantoin 100 mg p.o. daily Holding her methenamine hippurate 5. Multiple sclerosis Plan Continue Copaxone 40 mg subcu 3 times a week 6. Hypothyroidism Plan Continue her thyroid replacement but via intravenous because she is presently NPO Check TSH and free T4 in a.m. 7. Neurogenic bladder GOALS OF CARE I had a discussion with the patient this morning. I asked her if she would want a PEG tube and she shook her head NO. I explained to her that her life would be shortened if she did not have a PEG tube for nutrition. She she acknowledged understanding of this. She was again asked if she would want a PEG tube and she again said no. It was explained that if the barium swallow confirmed dysphagia and high risk for aspiration that a PEG tube would not be placed per her wishes. It was also mentioned that if that were the case that hospice referral would be made to provide further care at home. With the arrived the above goals of care discussion was undertaken. The patient confirmed her above statements. The is aware of his 's goals of care. Quality VTE Deep Vein Thrombosis/Pulmonary Embolism Present on Admission: No
--- NOTE | 2018-04-10 12:39 | PM.DS.1 ---
History of Present Illness Chief complaint: SOB HARD TIME SWALLOWING Narrative: The patient is a 72-year-old female with multiple sclerosis since 1985 and presents on admission with increased swallowing difficulty. Her dates the problem back to couple years ago however the past week it has become worse. In the past 2 days she has had increasing hacking cough and has had difficulty in coughing up the mucus. The states that she feels as though which she swallowed feels stuck in her throat at times. She has not had any increased shortness of breath tachypnea labored breathing. Discussion regarding PEG tubes was undertaken with the he states that she has had 2 of these in the past. For further discussion of PEG tube see assessment below Because of her increasing swelling difficulty she presented to the ED. In the ED her blood pressure is 149/87 pulse 88 respirations 24 temperature was 97.7? O2 sat was 96. Her CBC did reveal an elevated white count of 11.2. Her Chem panel revealed a AST of 47 alk-phos 129 and a glucose of 132. Chest x-ray revealed mild interstitial prominence finding said to be nonspecific The S concern for pneumonia and as result the hospitalist service was called for the admission and the patient was therefore be Discharge Providers Date of admission: 04/08/18 23:32 Primary care physician: Rivera South MD Consults: 04/08/18 21:08 Consult to Respiratory Therapy Evaluate & Treat Comment: Physician Instructions: Evaluate and treat 04/09/18 08:31 Consult to Speech Therapy Evaluate & Treat Comment: EVAL DYSPHAGIA Physician Instructions: Evaluate and treat 04/09/18 14:37 Consult to Dietitian, Adult Routine Comment: Reason For Exam: trudi scale score of 13-pt eats 2 meals per day Discharge provider: Sharath Roberson MD Exam Vital Signs (past 8 hours): - 04/10/18 05:00 04/10/18 07:25 04/10/18 10:42 Temperature 98.4 F Pulse Rate 68 Respiratory Rate 17 20 Blood Pressure 147/71 H Pulse Oximetry 92 93 93 04/10/18 10:44 Temperature Pulse Rate Respiratory Rate Blood Pressure Pulse Oximetry 93 Oxygen Delivery Method Nasal Cannula Oxygen Flow Rate 0 Objective Labs Result Diagrams: 04/09/18 08:20 04/09/18 08:20 Discharge Plan Discharge Med Rec/Prescriptions Prescriptions: No Action citalopram [Celexa] 10 MG tablet 10 mg PO QDAY Qty: 0 RF: 0 methenamine hippurate 1 GM tablet 1 gm PO DAILY Qty: 0 RF: 0 levothyroxine [Synthroid] 25 MCG tablet 0.025 mg PO 4XW Qty: 0 RF: 0 polyethylene glycol 3350 [Miralax] 119 GM powder 17 gm PO Q DAY Qty: 0 RF: 0 ascorbic acid (vitamin C) [Vitamin C] 1,000 mg Tablet 1 g PO Q6H RF: 0 levothyroxine 50 mcg Capsule 38 mcg PO 3XW RF: 0 glatiramer [Copaxone] 40 mg/mL Syringe 40 mg SUBCUT 3XW RF: 0 baclofen 10 MG tablet 10 mg PO BID RF: 0 cephalexin 250 mg Tablet 250 mg PO DAILY RF: 0 nitrofurantoin monohyd/m-cryst 100 mg Capsule 100 mg PO DAILY RF: 0 multivitamin,tx-minerals [Multi-Vitamin HP/Minerals] Capsule 1 cap PO DAILY RF: 0 furosemide 20 mg Tablet 20 mg PO DAILY RF: 0 cholecalciferol (vitamin D3) [Vitamin D3] 2,000 unit Tablet 2,000 unit PO DAILY RF: 0 pravastatin 20 mg Tablet 20 mg PO DAILY RF: 0 melatonin 5 mg Tablet 5 mg PO BEDTIME RF: 0 ibuprofen-diphenhydramine cit [Advil PM] 200-38 mg Tablet 1 cap PO BEDTIME RF: 0 Discharge Data Primary Care Provider: Rivera South V Attending Provider: Sharath Roberson Admmayra Date/Time: 04/08/18 23:32 Quality VTE Deep Vein Thrombosis/Pulmonary Embolism Present on Admission: No
[2018-04-10 13:09] LABS: Free T4, Direct Thyroxine 1.24 ng/dL (0.78-2.19)
[2018-04-10 13:23] LABS: Thyroid Stimulating Hormone 7.71 uIU/mL (0.47-4.68)
--- NOTE | 2018-04-10 16:43 | PM.PN.1 ---
Subjective Interval history: In the prior 24 hr has been no new events no new problems. She denies any problems with chest pain abdominal pain nausea vomiting or increased shortness of breath. Exam Vital Signs (past 8 hours): - 04/10/18 10:42 04/10/18 10:44 04/10/18 13:50 Temperature Pulse Rate Respiratory Rate 20 Blood Pressure Pulse Oximetry 93 93 94 04/10/18 15:45 Temperature 96.9 F L Pulse Rate 58 L Respiratory Rate 19 Blood Pressure 167/75 H Pulse Oximetry 94 Oxygen Delivery Method Nasal Cannula Oxygen Flow Rate 0 Narrative Exam Narrative: General frail cachectic chronically ill-appearing 72-year-old female in no acute distress HEENT normocephalic atraumatic extraocular movement was intact pupils were equal round reactive sclera were nonicteric fundi were not visualized oropharynx with slightly thickened oral secretions Neck supple without thyromegaly bruits or jugular venous distention Respiratory on anterior auscultation no rales rhonchi or wheezes Cardiovascular regular rhythm S1-S2 was normal there are no lifts heaves rubs murmurs present Abdomen benign bowel sounds active Extremities decreased muscular tone and muscle wasting. Arms chronic extension with hands with contractures Neurologic marked generalized weakness secondary to her multiple sclerosis Psychiatric flat affect Objective Labs Result Diagrams: 04/09/18 08:20 04/09/18 08:20 Labs: Laboratory Results - last 24 hr 04/09/18 08:20 TSH 7.71 H Free T4 1.24 Assessment & Plan Plan: Assessment/Plan Narrative: 1. Pneumonia There is no clear-cut evidence for pneumonia as her chest x-ray findings are non specific, she is afebrile, has not had increased cough for sputum production, her respiratory status is normal as evidence by her respiratory rate 17-20, O2 sats 92-94% on room air. Therefore therefore it is highly unlikely that she has pneumonia. Plan No antibiotic coverage for pneumonia Continue Rocephin UTI 2. Dysphagia This is related to the patient's multiple sclerosis. I have had a goals of care conversation with her and her regarding PEG tube. Please see goals of care discussion below Plan Modified barium swallow tomorrow 04/11/2018 3. Urinary tract infection Urine cultures returned positive for 2 colonies of gram-negative organisms. And as the patient has a chronic indwelling Montague catheter is possible that these organisms represent colonization and not true infection. For now will continue the Rocephin and await identification and sensitivity of the organisms. Plan Continue Rocephin 1 g IV daily Follow urine cultures 4. Urinary tract suppressive therapy As it appears patient may have a new urinary tract infection will discontinue her outpatient suppressive therapy Plan Hold Keflex 250 mg p.o. daily Hold nitro for Romel tone 100 mg p.o. daily Hold methenamine hippurate 5. Multiple sclerosis Plan Continue Copaxone 40 mg subcu 3 times a week 6. Hypothyroidism Overall clinically she appears to be essentially euthyroid her TSH is 7.71 and her free T4 is 1.24. As she patient is NPO we will give her replacement therapy IV Plan Continue IV Synthroid 7. Neurogenic bladder She has a chronic indwelling Montague catheter. Plan Continue Montague catheter GOALS OF CARE Discussion regarding PEG tube was undertaken with patient and her . At 1st the discussion was with the patient only has a was not present. I asked the patient if she would want a PEG tube if it were necessary and she shook her head and said no. It was explained to her that if she did not have a PEG tube if necessary that she would a lot sooner. She acknowledged this. She was again asked if she would want the PEG tube knowing that she would sooner without it and she again said she would not wanted. I then asked her if she did not have the PEG tube which she be willing to have hospice help provide additional care for her. She said yes Then the came later this morning. With him present I asked the patient again about PEG tube. Her answers were exactly as above and unchanged. Therefore the patient will not have a PEG tube if she were found to be high risk for aspiration and recommendation for PEG tube was given Quality VTE Deep Vein Thrombosis/Pulmonary Embolism Present on Admission: No
[2018-04-11] VITALS (10 sets, daily range): BP systolic 145–162; BP diastolic 71–83; PULSE 63–76; RESP 12–17; TEMP 36.3–36.7; O2SAT 91–98
[2018-04-11] MEDS: DEXTROSE 5%-0.9% NS 1,000 ML 100 ML IV ×3 (01:19→23:37)
[2018-04-11] MEDS: CEFTRIAXONE 1 GM/50 ML FROZ.PIGGY IV ×2 (04:15→16:24)
--- NOTE | 2018-04-11 09:22 | DI.RAD.S_ITS ---
PROCEDURE: FL BARIUM SWALLOW W SPEECH INDICATIONS: Possible silent aspiration. TECHNIQUE: Examination was conducted in conjunction with speech pathology per standard protocol. In the lateral projection, filming was performed of the patient swallowing. AP projection filming was not performed. COMPARISON: [facility], , BARIUM SWALLOW WITH SPEECH, 05/03/2013, 11:11. FINDINGS: Function: The oral preparatory phase appears normal, with proper containment. There was silent tracheal aspiration while swallowing thin barium rapidly through a straw. There was prominent pharyngeal residue was swallowing multiple substances. Morphology: Visualization of the lower pharynx and esophagus is suboptimal due to patient positioning, which could not be rectified due to patient condition. No cricopharyngeal bar is identified. IMPRESSION: Silent tracheal aspiration while swallowing thin barium rapidly through a straw. Dictated by: Angus Hall M.D. on 04/11/2018 at 12:36 Approved by: Angus Hall M.D. on 04/11/2018 at 12:40
[2018-04-11] MEDS: ENOXAPARIN 40 MG/0.4 ML SYRINGE SUBCUT (09:51)
--- NOTE | 2018-04-11 12:15 | CM.DPC ---
DCP/continued: Reviewed chart. Spoke with Dr. French and /Tanya this AM in rounds. MBS scheduled this AM. OPENING MACHINE CLEANER spoke with Tanya after MBS and she reports that current recommendation is comfort feedings for safety. Spoke with and . Care Conference scheduled today with team to discuss next steps with patient and spouse. RN updated. OPENING MACHINE CLEANER called spouse and he is aware and agreeable to meet today at 3:00pm. P: Pending. Care conference scheduled for today. BENJAMIN Teresa
[2018-04-11] MEDS: LEVOTHYROXINE INJ 100 MCG VIAL 50 MCG IV (12:31)
[2018-04-11 12:40] LABS: BUN Creatinine Ratio 11.4 (6-22); Blood Urea Nitrogen 8 mg/dL (7-17); Calcium 9.4 mg/dL (8.4-10.2); Carbon Dioxide 27 mmol/L (22-32); Chloride 109 mmol/L (98-107); Estimated Glomerular Filt Rate > 60.0 mL/min (>60); Glucose 94 mg/dL (80-110); HEMOLYSIS < 15 (0-50); Potassium 3.4 mmol/L (3.4-5.1); Sodium 145 mmol/L (137-145)
--- NOTE | 2018-04-11 13:05 | ST.SWALLOW ---
Care Team Visit Care Team Role Provider Type Rivera South MD Primary Care Provider Physician Specialty: Internal Medicine Address: [address] [place] [address] Email: Bridget Lucero DO Emergency Provider Physician Specialty: Emergency Medicine Address: [address] [place] [address] Email: Sharath Roberson MD Admit Provider Physician Attending Provider Specialty: Internal Medicine Address: [address] [place] [id number] Email: Modified Barium Swallow Study MANAGER OF PROGRAM Modified Barium Swallow Study Start: 04/09/18 14:30 Freq: Status: Active Protocol: Document 04/11/18 12:31 MRM (Rec: 04/11/18 13:04 MRM [id number]) Modified Barium Swallow Study Total Time Visit Start Time 10:45 Visit Stop Time 12:00 Total Visit Minutes [address] French Reason for Referral Aspiration secodary to advanced MS Setting Setting Acute Care Patient Information Identification Type Name Other Patient History The patient is a 72-year-old female with history of MS here with her . He has noticed that over the last couple days she has had increased secretions and shallow breathing. He has not noted any fever. She he she has had some difficulty swallowing and has a hard time getting all of her secretions up. A clinical swallow evaluation was performed on . Severe-profound dysphagia. Patient made NPO until MBS could be completed. In AM rounds today, RT gave report that patient has been receiving suction for secretion management. Per power and recovery shift engineer, she desatted in the low 70s during suction. Medical History CVA (cerebral vascular accident) (Acute) Hyperlipidemia (Acute) Hypothyroid (Acute) Multiple sclerosis (Acute) Neurogenic bladder (Acute) Subjective Observations MANAGER OF PROGRAM present in patient's room prior to MBS to confirm that she wanted to participate. She confirmed that she wanted to participate in the MBS and did not want a feeding tube. RN, radiology transfer tech, MARKING STITCHER and physical therapist all present to transfer patient via vaishali from bed into MBS chair and strap patient into the chair safely. Additional support required due to patient's advanced MS and inability to maintain safe positioning in the chair. MANAGER OF PROGRAM and RT present for MBS. RT set up 02 and suction prior to study and measured the patient's 02 level prior to initiation. MANAGER OF PROGRAM, RT, and Radiologist all present for study. No suction needed throughout the study. Patient Positioning Position View Lateral Imaging Lateral View Textures Administered Trials Presented Thin Liquid via Spoon Thin Liquid via Straw Dysphagia Blenderized Textures Oral Phase Source: MBSIMP (TM) (C) Bolus Specific Scoring Grid Lip Closure Severe Impairment Tongue Control During Bolus Hold Severe Impairment Bolus Prep/Mastication Moderate Impairment Bolus Transport/Lingual Motion Severe Impairment A/P Lingual Propulsion Delay Yes Oral Residue Severe Impairment Residue Clearing Severe Impairment Nasal Regurgitation No Additional Oral Phase Observations Lingua-velar seal present, but reduced, allowing premature posterior spillage into pharynx. Pharyngeal Phase Source: MBSIMP (TM) (C) Bolus Specific Scoring Grid Delayed Initiation of Pharyngeal Swallow Yes Soft Palate Elevation Severe Impairment Tongue Base Strength/Range of Motion Severe Impairment Residue Along the Tongue Base Yes Clearance of Residue Along Tongue Base Severe Impairment Laryngeal Elevation Moderate Impairment Anterior Hyoid Movement Severe Impairment Epiglottic Range of Motion Severe Impairment Vallecular Residue Yes Clearance of Vallecular Residue Severe Impairment Laryngeal Vestibular Closure Severe Impairment Pharyngeal Stripping Wave Moderate Impairment Pharyngeal Contraction Moderate Impairment Posterior Pharyngeal Wall Residue Yes Clearance of Posterior Pharyngeal Wall Moderate Impairment Residue Upper Esophageal Sphincter Opening Moderate Impairment Residue in the Pyriform Sinuses Yes Clearance of Residue in the Pyriform Moderate Impairment Sinuses Esophageal Clearance Upright Position Moderate Impairment Pharyngoesophageal Backflow Observed No Additional Pharyngeal Phase Observations Observed very small epiglottis , which created a very small valleculae. As a result, large amounts of PO easily spilled past valleculae and into the laryngeal vestibule as well as into the pyriform sinuses. Epiglottic inversion present and sufficient for laryngeal closure with tsp sips of thin/ 1/4 tsp bites of puree textures only. Unable to produce spontaneous dry swallow to address significant pharyngeal residue after 1/4 tsp bite of applesauce. Liquid wash required. Penetration observed. A/P View Esophageal Observations Esophageal Function No significant esophgeal findings. Please see Radiologist's report for full details. Clinical Impressions Dysphagia Type Severe-profound oropharyngeal dysphagia Findings Patient presents with severe- profound oropharyngeal dysphagia secondary to advanced MS. Observed reduced labial strength and ROM for bolus acceptance. Significant anterior spillage from right labial corner and medial labial seal observed in trials of thin liquid via spoon and straw. Moderate labial residue observed after trials. Unsuccessful in clearing with lingual sweep. No bilateral elevation in lingual surface in order to hold and control bolus in mouth. As a result, diffuse bolus loss observed consistently as well as poor bolus formation, poor bolus control and poor A-P propulsion for swallow initiation. Moderate oral residue observed after the swallow consistently as well. Unable to perform lingual sweep and dry swallow to clear mouth of residual barium. Lingua-velar seal present, but reduced. As a result, patient able to prevent premature spillage in 1/4 tsp sips of thin liquid and 1/4 tsp of applesauce. However, in small sip from straw, liquid spilled through lingua-velar seal due to reduced tongue base strenght and reduced velar strength. This residue spilled past the valleculae and into the laryngeal vestibule prior to swallow initiation. No cough response. When patient relaxed lingua-velar seal, allowing straw sip of thin liqudi to pass into pharynx for swallow initiation, observed delayed swallow response with dorian, silent aspiration of thin liquid past the level of the vocal folds. No throat clear, no cough, no change in vocal quality, no overt change in vitals/ breathing/facial coloring. Patient stated she was unaware of aspiration. MANAGER OF PROGRAM provided strong to throat clear/cough and swallow, however, patient was minimally successful in completing these strategies to clear airway. Residue from initial aspiration event was then aspirated. During trial of 1/4 tsp of applesauce, bolus dripped to the valleculae after A-P propulsion. Due to delayed swallow initiation (delaying epiglottic inversion), significant residue was observed to pool in the valleculae and in the pyriform sinuses after the swallow. Unable to clear with dry swallows. Significant difficulty observed following directions for throat clear/ cough to assist in stimulating dry swallow. MANAGER OF PROGRAM provided liquid wash of 1/4 tsp of thin which did reduce residue in valleculae and pyriform sinuses, but did not clear. Penetration observed with liquid wash. Unable to determine if from residue of puree or residue from aspiration event. Trials discontinued due to patient's poor stamina and frequent penetration/ aspiration, all silent in nature. RECOMMEND: No proper diet recommended due to the patient 's inability to tolerate large amounts of liquids/solids and silent aspiration. For comfort measures, patient may tolerate 1/4 tsp sips of thin liquid and 1/4 bites of applesauce with immediate liquid wash to follow as well as cues for effortful swallow/ double swallow. Allow no more than 3 bites of applesauce with consistent liquid wash before taking a break to cue for several effortful swallows in order to prevent aspriation of pharyngeal residue. 1:1 assistance for all PO intake. NO STRAWS. Patient must be positioned upright as much as possible during intake to assist in poor head/neck positioning. Lingua-velar seal is reduced, so the more reclined patient is, the greater the chance for premature spillage into pharynx. MANAGER OF PROGRAM discussed findings with RN , Chelsie, LYNDSEY, Yasmeen, and Dr French. At this time, patient will not be able to maintain adequate nutrition/hydration due to her severely limited ability to tolerate PO. As a result, alternative means or hospice/comfort care will be necessary, per patient's choice. A care team meeting is scheduled for today at 1500 to provide the results of the study and discuss next stps with the patient and her . Patient may have small tsp sips of water for comfort after thorough oral care. Monitor vitals and lung sounds for decline. As discussed with Dr French, patient may particiapte in daily therapy to improve oropharyngeal strength, but it may not be enough soon enough . Will discuss with family. Rehabilitation Potential Poor Patient Appropriate for Therapy Yes: Pending family consult Recommendations Diet Liquids Order Thin Diet Order Dysphagia Blenderized Medication Recommendation Not Recommended by Mouth Comments 1/4 tsp sips of liquid, 1/4 tsp bites of puree, no more than 3 bites Additional Dietary Needs 1:1 Assistance Aspiration Precautions Recommended Precautions Upright at 90 Degrees Alternate Liquids/Solids Frequent Rest Periods Small Bites/Sips Effortful Swallow Double Swallow Lingual Sweep Check for Pocketing Nathalia Maneuvor Liquids from Cup Additional Precautions No straws Treatment Plan Additional Therapy Recommendations Therapy recommendations based on family request, poor prognosis Freight Car Inspector Goals Patient will tolerate comfort feedings via 1/4 tsp water and 1/4 bite of puree textures. No more than 3 bites before break. Consistent liquid wash to clear pharyngeal residue. Cue and stimulate for dry swallow to clear residue. Family/care team meeting to discuss plan of care. Placement Recommendation After Discharge Palliative Care
--- NOTE | 2018-04-11 15:35 | PM.PN.1 ---
Subjective Date Patient Seen: 04/11/18 Interval history: Chart reviewed, patient seen and examined. Her eyes are open. I asked her if she wanted a PEG placed. Patient appeared to understand and refused to have the PEG tube placed. Family conference at the bedside with the . We explained that she aspirated during the speech evaluation today. Patient appeared to tolerate 1/4 of a teaspoon of liquids or applesauce. More than 1/4 teaspoon resulted in aspiration. Her expressed concern about her nutritional status and wants to talk to his to convince her to have a PEG tube. He is willing to meet with hospice to discuss goals of care. Exam Vital Signs (past 8 hours): - 04/11/18 09:30 04/11/18 12:05 Temperature 97.8 F Pulse Rate 64 Respiratory Rate 16 Blood Pressure 147/77 H Pulse Oximetry 95 93 Oxygen Delivery Method Room Air Oxygen Flow Rate 0 Narrative Exam Narrative: Patient is lying in bed, eyes open. She appears to be in no distress.By report from speech, patient did aspirate and desaturate. After suctioning her oxygenation improved. Lungs: decreased breath sounds bilaterally CV: RRR nl Sl S2 ABd: soft/ non tender/ non distended Ext: no edema Objective Labs Result Diagrams: 04/09/18 08:20 04/11/18 11:53 Labs: Laboratory Results - last 24 hr 04/11/18 11:53 Sodium 145 Potassium 3.4 Chloride 109 H Carbon Dioxide 27 BUN 8 Creatinine 0.70 Estimated GFR > 60.0 BUN/Creatinine Ratio 11.4 Glucose 94 Calcium 9.4 Assessment & Plan (1) Dysphagia: Problem details: Awaiting Hospice consult. Currently she is only safe to eat 1/4 tsp at a time Current visit: Yes Status: Acute (2) Protein calorie malnutrition: Problem details: Will discuss options after hospice consult Current visit: Yes Status: Acute (3) Urinary tract infection: Problem details: continue antibiotics Current visit: Yes Status: Acute (4) Multiple sclerosis: Problem details: continue copaxone Current visit: Yes Status: Acute Quality VTE Deep Vein Thrombosis/Pulmonary Embolism Present on Admission: No
--- NOTE | 2018-04-11 15:50 | ST.IPDYTX ---
Care Team Visit Care Team Role Provider Type Rivera South MD Primary Care Provider Physician Specialty: Internal Medicine Address: [address] [place] [address], [id number] Email: Bridget Lucero DO Emergency Provider Physician Specialty: Emergency Medicine Address: [address] [place] [phone] Email: Sharath Roberson MD Admit Provider Physician Attending Provider Specialty: Internal Medicine Address: [address] [place] [phone] Email: REPAIR WEAVER Dysphagia Treatment REPAIR WEAVER Dysphagia Treatment Start: 04/09/18 14:30 Freq: Status: Active Protocol: Document 04/11/18 15:50 MRM (Rec: 04/12/18 14:53 MRM [id number]) Dysphagia Treatment Session Time Visit Start Time 15:00 Visit Stop Time 15:45 Total Visit Minutes 45 Setting Assessment Location Acute Care Visit Type Note Type Treatment Note Next Note Type Next Note Type Treatment Note Patient Information Subjective Observations REPAIR WEAVER present with Dr French and Yasmeen SOLORIO, to speak with patient and her about plan of care. REPAIR WEAVER provided report of MBS and discussed implications - silent aspiration, frequent aspiration/penetration with large bolus sizes, difficulty clearing residue, etc. Discussed comfort feeding and strategies to use (alternate liqudis/solids, small, 1/4 tsp bites/sips, frequent rest periods, positioning, monitoring oxygen saturation levels, etc). Provided education regarding aspiration precautions. had many questions regarding this and was uncomfortable with his 's decision to not receive a PEG tube. He was very worried that she would starve to and felt uncomfortable taking her home this way. Stated, I'll talk her into one, referring to receiving a PEG tube. Dr French and Yasmeen then recommended a hospice consult to discuss options for home care, regardless of PEG tube placement. was initially apprehensive to this , but then did agree to have a meeting. Meeting scheduled for 04/12/18 at 1300. was very concerned about his and had many questions regarding overall care, but was especially worried about her ability to eat and drink. It was agreed to REPAIR WEAVER would speak with hospice consult and follow up with the regarding intake. TOTAL TIME: 30 minutes. Treatment Plan Therapy Recommendations REPAIR WEAVER will follow up with hospice consult and family to discuss further plan of care.
--- NOTE | 2018-04-11 16:11 | CM.DPC ---
DCP/continued: MD BENJAMIN/Dr. French and Tran met with patient and spouse/Richton at bedside to discuss next steps in patient's care. Spouse made aware that patient unable to effectively swallow. Spouse reports that he would like PEG tube placement but patient has told MD and other staff members that she does not want tube placed. Patient asleep during current care conference. Spouse agreeable to discuss all options re: quality of life and goals of care. SUPERVISOR BEATER ROOM recommended that hospice come for informational visit with patient and spouse. Spouse agreeable and visit scheduled for tomorrow 04-12-18 at 1:00pm. Spouse encouraged to discuss with patient's PCP/Dr. South as well. P: Pending. Hospice to do informational visit tomorrow. Anticipate home with hospice vs. PEG tube placement. BENJAMIN Teresa
--- NOTE | 2018-04-11 23:38 | PC.NURSE ---
Assumed care of pt from outgoing shift at 1500. Pt awake. urned q2. Pt answers yes no questions but mostly repeats what i say back to me. Pt stated that she though her was having an affair. pt was very warm and wanted al blankets off and scds removed. pt back in room and replaced all blankets. pt denies pain. Pt does not use call light. oral care and frequent checks completed. will continue to monitor.
[2018-04-12] VITALS (11 sets, daily range): BP systolic 141–160; BP diastolic 58–92; PULSE 57–67; RESP 16–24; TEMP 36.3–36.9; O2SAT 93–97
--- NOTE | 2018-04-12 01:48 | PC.NURSE ---
Addendum entered by Lisette Chambers R.N. 04/12/18 03:20: When repositioned hollered out when arms moved. States she is having pain and describes it as uncomfortable; medicated with Morphine. States she wants breakfast but when explained that in order for her to receive food she would need to have a feeding tube inserted and she shakes her head no and states she does not want a tube. Original Note: Patient is alert and oriented except to day of month/day of week. Breath sounds diminished but CTA with RA sat of 95%; on continuous pulse oximetry per MD order. HRR and telemetry reading at 0000 was SR. BP trends high and currently was 160/81. Denies nausea. BT present and abdomen is soft. Chronic indwelling catheter due to neurogenic bladder with urine pale yellow. Due to MS has only minimal movement in bilateral arms and was only able to wiggle toes; has bilateral hand contractures. Needing to be repositioned q2h and heels are being floated. Denies any pain/discomfort. Currently NPO due to swallowing problems and has declined (and reiterated to this RN) to have PEG tube inserted. Bilateral SCD's applied at shift change. Fall risk score is high and bed alarm is activated.
[2018-04-12] MEDS: MORPHINE 2 MG/ML INJ IV (03:17)
[2018-04-12] MEDS: CEFTRIAXONE 1 GM/50 ML FROZ.PIGGY IV ×2 (03:45→16:06)
--- NOTE | 2018-04-12 08:45 | CM.DPC ---
Referral faxed to [facility]
[2018-04-12] MEDS: ENOXAPARIN 40 MG/0.4 ML SYRINGE SUBCUT (10:32)
[2018-04-12] MEDS: SCOPOLAMINE 1 PATCH TOP (10:32)
[2018-04-12] MEDS: DEXTROSE 5%-0.9% NS 1,000 ML 100 ML IV ×2 (10:53→20:38)
[2018-04-12] MEDS: LEVOTHYROXINE INJ 100 MCG VIAL 50 MCG IV (11:50)
--- NOTE | 2018-04-12 13:11 | PC.NURSE ---
Addendum entered by Christy Kaufman R.N. 04/12/18 13:44: Feeding tube: Hospice was here and met with patient and her . Per hospice nurse, patient stated clearly, 4 times, that she DOES want a feeding tube placed. Original Note: Shift summary: Awake and alert, oriented to self/place/situation. Remains NPO. HOB elevated, providing oral care Q2H and PRN. Denies any complaints of pain or discomfort. Repositioning Q2H. Chronic jesus, patent to gravity. IVF per orders, site in L forearm WNL. Able to make needs known when asked. Does not use call light. Bed alarm active.
--- NOTE | 2018-04-12 14:00 | SLP.IPNOTE ---
Addendum entered and electronically signed by Wolfgang Chang 04/12/18 14:46: Total time spent with family for education: 20 minutes. Billin Original Note: SYSTEMS TEST ANALYST present to speak with following hospice consult. Patient has agreed to receive a PEG tube due to her profound oropharyngeal dysphagia. SYSTEMS TEST ANALYST provided additional education to the regarding comfort feeding and dysphagia strategies. At this time, there are no additional skilled services regarding dysphagia treatment. SYSTEMS TEST ANALYST will sign off. Please reconsult if warranted. SYSTEMS TEST ANALYST spoke with Dr French who confirmed this plan.
--- NOTE | 2018-04-12 15:47 | CM.DPC ---
DCP/continued: Reviewed chart. Patient and spouse met with hospice today to discuss goals of care and plan. After informational visit completed it was determined that patient now wants feeding tube. Dr. French notified. Hospice now on hold. CM team to follow closely. Anticipate home with HH vs. SNF pending PEG tube needs. P: Pending. BENJAMIN Tersea
--- NOTE | 2018-04-12 17:38 | PC.NURSE ---
Addendum entered by Ebony Rai R.N. 04/12/18 22:53: Pt covers removed as she sated she felt warm. pt much more difficult to understand than she was last night. oral care performed. pt stated i didn't get any though. Pt told that she cant have anything because it goes into her lungs. pt then stated Oh, ok.denied further needs. will continue to monitor. Original Note: Assumed care of pt from outgoing shift at 1500. PT asleep at this time. rr regular, no distress noted. arouses to voice. denies pain. does not use call light. q2 turn and oral care provided. repeats sentences back. in bed, scds on. will continue to monitor.
--- NOTE | 2018-04-12 17:56 | PM.PN.1 ---
Subjective Date Patient Seen: 04/12/18 Interval history: Hospice met with the patient and her . Following their discussion they elected to have a PEG placed. Exam Vital Signs (past 8 hours): - 04/12/18 11:30 04/12/18 13:44 04/12/18 15:25 Temperature 98.4 F 97.4 F L Pulse Rate 66 57 L Respiratory Rate 18 16 Blood Pressure 150/83 H 146/58 H Pulse Oximetry 95 95 97 04/12/18 16:00 Temperature Pulse Rate Respiratory Rate Blood Pressure Pulse Oximetry 95 Oxygen Delivery Method Room Air Oxygen Flow Rate 0 Narrative Exam Narrative: Eyes open Lungs: clear to auscultation CV: RRR nl Sl S2 Abd: Soft/ non tender/ nondistended Ext: no edema, flaccid Objective Labs Result Diagrams: 04/09/18 08:20 04/11/18 11:53 Assessment & Plan (1) Multiple sclerosis: Problem details: continue copaxone Current visit: Yes Status: Acute (2) Urinary tract infection: Problem details: continue antibiotics Current visit: Yes Status: Acute (3) Protein calorie malnutrition: Problem details: Will discuss options after hospice consult Patient and are electing to have PEG placement. Consult out to Dr. Strickland to place tomorrow Current visit: Yes Status: Acute (4) Dysphagia: Problem details: Awaiting Hospice consult. Currently she is only safe to eat 1/4 tsp at a time PEG tube placement Current visit: Yes Status: Acute Plan: Assessment/Plan Narrative: Home after peg in place and patient demonstrates ability to tolerate tube feedings Quality VTE Deep Vein Thrombosis/Pulmonary Embolism Present on Admission: No
[2018-04-13] VITALS (10 sets, daily range): BP systolic 138–166; BP diastolic 60–86; PULSE 62–66; RESP 16–18; TEMP 36.3–37; O2SAT 92–97
[2018-04-13] MEDS: CEFTRIAXONE 1 GM/50 ML FROZ.PIGGY IV (05:36)
[2018-04-13] MEDS: DEXTROSE 5%-0.9% NS 1,000 ML 100 ML IV ×2 (05:36→15:44)
--- NOTE | 2018-04-13 12:16 | CM.DPC ---
DCP Cont: Per , Dr. Strickland to Consult with pt and spouse today regarding their decision to move forward with PEG Placement since this will be pt's 3rd attempt at PEG. SW called [facility] and updated on Consult today for PEG. Plan: SW to follow closely for Dr. Strickland to Consult for possible PEG placement for the 3rd time. [facility] on hold waiting to determine if PEG placement will happen or not. If PEG, then likely HH or SNF will be needed and no Hospice. SW to keep [facility] updated. BENJAMIN Lorenz
[2018-04-13] MEDS: LEVOTHYROXINE INJ 100 MCG VIAL 50 MCG IV (12:33)
--- NOTE | 2018-04-13 16:55 | PM.CN ---
History of Present Illness Date Patient Seen: 04/12/18 Time Patient Seen: 16:55 Chief complaint: SOB HARD TIME SWALLOWING Reason for consult: Consideration for PEG tube placement Narrative: Rosa is a pleasant but unfortunate 72-year-old lady who was admitted to the hospital for progressive dysphagia. She suffers from severe and progressive multiple sclerosis and has had difficulty swallowing over the past couple of years but has become significantly more severe for the week prior to admission. She also has a history of having had either a series of seizures or stroke in 2012 that was the inspiration for her last PEG tube. She lives at home with her who is her primary caregiver. Following admission, she was treated for pneumonia and discussion was undertaken regarding replacement of the PEG tube versus hospice care. The patient did discuss hospice care and was visited by that service as well. She and her both decided that they preferred peg replacement for the present. 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) Family History Father Heart disease Social History marital status: household members: spouse lives independently: No caregiver/support person: Yes () Smoking Status: Former smoker alcohol intake: never Meds Home Medications Medication Instructions Recorded Confirmed Type citalopram [Celexa] 10 mg PO QDAY #0 09/08/12 04/08/18 History levothyroxine [Synthroid] 0.025 mg PO 4XW #0 09/08/12 04/08/18 History methenamine hippurate 1 gm PO DAILY #0 09/08/12 04/08/18 History polyethylene glycol 3350 [Miralax] 17 gm PO Q DAY #0 09/08/12 04/08/18 History ascorbic acid (vitamin C) [Vitamin 1 g PO Q6H 04/08/18 04/08/18 History C] baclofen 10 mg PO BID 04/08/18 04/08/18 History glatiramer [Copaxone] 40 mg SUBCUT 3XW 04/08/18 04/08/18 History levothyroxine 38 mcg PO 3XW 04/08/18 04/08/18 History cephalexin 250 mg PO DAILY 04/09/18 04/09/18 History cholecalciferol (vitamin D3) 2,000 unit PO DAILY 04/09/18 04/09/18 History [Vitamin D3] furosemide 20 mg PO DAILY 04/09/18 04/09/18 History ibuprofen-diphenhydramine cit 1 cap PO BEDTIME 04/09/18 04/09/18 History [Advil PM] melatonin 5 mg PO BEDTIME 04/09/18 04/09/18 History multivitamin,tx-minerals 1 cap PO DAILY 04/09/18 04/09/18 History [Multi-Vitamin HP/Minerals] nitrofurantoin monohyd/m-cryst 100 mg PO DAILY 04/09/18 04/09/18 History pravastatin 20 mg PO DAILY 04/09/18 04/09/18 History Allergies Allergy/AdvReac Type Severity Reaction Status Date / Time omega-3 acid ethyl esters Allergy Intermediate acid Verified 04/09/18 09:03 [OMEGA-3 ACID ETHYL ESTERS] reflux reaction gabapentin [GABAPENTIN] Allergy Mild Drowsy Verified 04/09/18 09:03 clonazepam [CLONAZEPAM] Allergy Unknown Verified 04/09/18 09:03 hydrochlorothiazide Allergy Unknown Unverified 10/27/17 11:57 [HYDROCHLOROTHIAZIDE] lamotrigine [LAMOTRIGINE] Allergy Unknown Verified 04/09/18 09:03 levetiracetam [From KEPPRA] Allergy Unknown Verified 04/09/18 09:03 methylphenidate Allergy Unknown Unverified 10/27/17 11:57 [METHYLPHENIDATE] modafinil [MODAFINIL] Allergy Unknown Verified 04/09/18 09:03 phenazopyridine Allergy Unknown Verified 04/09/18 09:03 [PHENAZOPYRIDINE] Sulfa (Sulfonamide AdvReac Severe Hives Verified 04/09/18 09:03 Antibiotics) [SULFA (SULFONAMIDE ANTIBIOTICS)] ciprofloxacin [CIPROFLOXACIN] AdvReac Intermediate Verified 04/09/18 09:03 Review of Systems Review of Systems unobtainable due to mental condition Exam Vital Signs (past 8 hours): - 04/13/18 12:00 04/13/18 15:10 04/13/18 16:02 Temperature 97.9 F 97.8 F Pulse Rate 62 65 Respiratory Rate 16 17 Blood Pressure 139/82 158/78 H Pulse Oximetry 94 95 92 Oxygen Delivery Method Room Air Oxygen Flow Rate 0 Narrative Exam Narrative: Very ill appearing lady. She is contracted and weak but makes attempt to communicate verbally. She expresses that this replacement PEG is something that she wants for her life. HEENT: Normocephalic and atraumatic, mucous membranes are somewhat dry. Lungs: Essentially clear without wheezing Heart: Regular rate and rhythm Abdomen: Somewhat firm due to contractions, active bowel sounds, well-healed upper midline scar consistent with prior PEG placement. Upper midline bulge consistent with hernia or diastasis. The patient is somewhat contracted and stiff currently and is difficult to tell what this is exactly. Extremities: Contracted and weak. No evidence of acute ischemia Objective Labs Result Diagrams: 04/14/18 05:25 04/14/18 05:25 Assessment & Plan Plan: Assessment/Plan Narrative: Very pleasant 72-year-old lady who is a profoundly poor surgical candidate. A maximum inspiratory pressure study this morning revealed maximum effort producing only 2 mm of mercury inspiratory pressure. I discussed this with Mrs. Reynolds. Although she has difficulty communicating, she acknowledges yes and no to specific questions. I told Rosa that I am not certain that we can replace this PEG tube. Each time the tube was removed and replaced the next procedure is more dangerous than the last. We would certainly need to use the C-arm in the operating room to be sure her colon is not somehow interposed in the area that we need to access. The hernia or mass in the middle the abdomen presents a 2nd possible logistic challenge for this procedure. I assured her that we would not proceed with an open gastrostomy tube unless this was discussed with her 1st. She understands that she is profoundly poor surgical candidate and that she could be confined to the ventilator after this procedure. Certainly we will try to do the procedure with no intubation. She has agreed to go to the intensive care unit following the procedure for careful monitoring of her respiratory status. Due to scheduling limitations, Dr. Echeverria will see this patient in the morning and discussed these things with she and her once again prior to the planned procedure. As her was not available to sign the consent, a 2 person verbal consent was obtained with 2 nurses.
[2018-04-13] MEDS: CEFEPIME 1 GM in SODIUM CHLORIDE 0.9% 100 ML 200 ML IV (18:56)
--- NOTE | 2018-04-13 18:56 | PM.PN.1 ---
Subjective Date Patient Seen: 04/13/18 Time Patient Seen: 18:57 Interval history: Patient seen at bedside. She is denying any pain at this time. No acute overnight events. Patient was evaluated by surgery/anasthesia today regarding peg placement however they would like patient to be in ICU right after procedure due to previous anasthesia complications. Waiting for ICU bed to open up before procedure. Exam Vital Signs (past 8 hours): - 04/13/18 12:00 04/13/18 15:10 04/13/18 16:02 Temperature 97.9 F 97.8 F Pulse Rate 62 65 Respiratory Rate 16 17 Blood Pressure 139/82 158/78 H Pulse Oximetry 94 95 92 Oxygen Delivery Method Room Air Oxygen Flow Rate 0 Narrative Exam Narrative: General frail cachectic chronically ill-appearing female in no acute distress HEENT normocephalic atraumatic extraocular movement was intact, PERRLA BL Neck supple without thyromegaly or JVD Respiratory on anterior auscultation no rales rhonchi or wheezes Cardiovascular regular rhythm S1-S2 was normal there are no lifts heaves rubs murmurs present Abdomen benign bowel sounds active Extremities decreased muscular tone and muscle wasting. Arms chronic extension with hands with contractures Neurologic marked generalized weakness secondary to her multiple sclerosis Psychiatric flat affect Objective Labs Result Diagrams: 04/09/18 08:20 04/11/18 11:53 Assessment & Plan Plan: Assessment/Plan Narrative: 72yo F with PMH of MS admitted for dysphagia. Found to have UTI. Pending PEG placement 1. UTI - Urine cultures grew pseudomonas - Will broaden coverage to Cefepime 1g BID 2. Dysphagia - Pending Peg tube placement tomorrow - Continue NPO and D5NS @100cc/hr 3. MS - Continue Copaxone 40mg SubQ 3 times a week 4. Hypothyroidism - Continue Levothyroxine IV Quality VTE Deep Vein Thrombosis/Pulmonary Embolism Present on Admission: No
[2018-04-14] VITALS (16 sets, daily range): BP systolic 120–166; BP diastolic 65–87; PULSE 58–82; RESP 12–62; TEMP 36.1–36.8; O2SAT 93–97; BMI 22.6
--- NOTE | 2018-04-14 | DI.RAD.S_ITS ---
PROCEDURE: XR ABDOMEN MIN 2V INDICATIONS: PEG TUBE INSERTION TECHNIQUE: 2 views of the abdomen were acquired. COMPARISON: None. FINDINGS: Intraoperative cine images demonstrate catheter overlying the left upper quadrant. There is no visible contrast injection. IMPRESSION: Limited intraoperative images as above. Position of PEG tube cannot be confirmed on the basis of this exam. Please see real-time operative report for further details. Dictated by: Puja Roldan M.D. on 04/14/2018 at 17:10 Approved by: Puja Roldan M.D. on 04/14/2018 at 17:11
[2018-04-14] MEDS: DEXTROSE 5%-0.9% NS 1,000 ML 100 ML IV ×2 (02:15→17:17)
--- NOTE | 2018-04-14 02:25 | PC.NURSE ---
Addendum entered by Lisette Chambers R.N. 04/14/18 06:52: Dr Edgar informed of K+ of only 2.8 this morning although not critical but patient has planned surgery today; see new order. Original Note: Addendum entered by Lisette Chambers R.N. 04/14/18 06:22: Slept at intervals. Repositioned q2h. Continues on NPO status. Continues to deny pain. Original Note: Patient is alert and mostly oriented although did not know day of month/week and had incorrect age. Is very soft spoken and can be difficult to understand. Breath sounds are CTA with RA sat of 96%; remains on continous pulse oximetry. HRR with telemetry reading of SR. Denies nausea. BT present but has not had BM since 04/10; has been NPO due to severe aspiration risk and plan is to place PEG tube later today. Is unable to move herself due to MS; has VERY minimal movement in extremities and has bilateral hand contractures. Is being repositioned q2h and skin is without redness/breakdown. Indwelling catheter is patent; catheter is chronic due to neurogenic bladder. Fall risk score is high and bed alarm is activated. Seems to be sad tonight and wanting staff to help her find a way to get out of here. Wants spouse called to come and take her home. Attempted to provide reassurance.
[2018-04-14] MEDS: CEFEPIME 1 GM in SODIUM CHLORIDE 0.9% 100 ML 200 ML IV ×2 (05:23→17:14)
[2018-04-14 05:58] LABS: INR 1.1 (0.9-1.3); Prothrombin Time 12.3 SECONDS (10.1-12.7)
[2018-04-14 06:01] LABS: PTT Partial Thromboplastin Tim 29 SECONDS (26.4-36.2)
[2018-04-14 06:03] LABS: BUN Creatinine Ratio 8.3 (6-22); Basophils Percent Auto 0.5 % (0-2); Blood Urea Nitrogen 5 mg/dL (7-17); Calcium 8.8 mg/dL (8.4-10.2); Carbon Dioxide 27 mmol/L (22-32); Chloride 109 mmol/L (98-107); Eosinophils Percent Auto 2.6 % (2-4); Estimated Glomerular Filt Rate > 60.0 mL/min (>60); Glucose 112 mg/dL (80-110); HEMOLYSIS < 15 (0-50); Hematocrit 36.9 % (36-46); Lymphocytes Percent Auto 38.2 % (25-40); Mean Corpuscular HGB Conc 35.2 % (30-36); Mean Corpuscular Hemoglobin 35.8 PG (26-34); Mean Corpuscular Volume 101.7 fL (80-100); Monocytes Percent Auto 13.5 % (3-14); Neutrophils Absolute Auto 3900 /uL (3000-5900); Neutrophils Percent Auto 45.2 % (50-75); Platelet Count 96 X10^3/uL (150-400); Potassium 2.8 mmol/L (3.4-5.1); Red Blood Cell Count 3.63 X10^6/uL (4.0-5.2); Red Cell Distribution Width 13.8 % (11.6-14.8); Sodium 144 mmol/L (137-145); White Blood Cell Count 8.6 X10^3/uL (4.5-11.0)
[2018-04-14 06:12] LABS: Add Manual Diff / Slide Review SLIDE REVIEW
[2018-04-14 06:21] LABS: RBC Morphology Normal Morphology
[2018-04-14] MEDS: POTASSIUM CHLORIDE 60 MEQ in SODIUM CHLORIDE 0.9% 500 ML 88.333 ML IV (07:09)
[2018-04-14] MEDS: LEVOTHYROXINE INJ 100 MCG VIAL 50 MCG IV (08:50)
--- NOTE | 2018-04-14 09:14 | PM.OP.1 ---
Operative Date/Time/Diagnoses Date of procedure: 04/14/18 Time of procedure: 09:14 Pre-op diagnosis: Family history of colon cancer Personal history of colon polyps Post-op diagnosis: same Procedure & Clinicians Procedure: Colonoscopy to the cecum Same procedure as scheduled: Yes Indications: Last colonoscopy 5 years ago Surgeon: Padmini Strickland Click Yes if Unassisted: Yes Anesthesia Type: Sedation (Versed 8 mg; fentanyl 200 mcg) Operative Notes Findings: 1. Poor prep 2. No polyps or mass lesions 3. No AV malformations 4. Tortuous, lax, and elongated colon consistent with chronic constipation 5. Minimal diverticulosis limited to the sigmoid region 6. Grade 1 internal hemorrhoids Closure Type: not applicable Specimen(s): none sent Procedure in detail: After obtaining informed consent, the patient was brought to the GI suite and placed in the left lateral decubitus position on the examination table. After placement of appropriate monitors, the patient was given incremental doses of Versed and Fentanyl until an appropriate level of sedation was achieved. A time out was held per SCOAP protocol. A digital rectal examination was performed and did not reveal any masses or obstructing lesions. The colonoscope was gently passed into the patient's anus and the entire colon navigated to the level of the cecum with significant difficulty due to colon tortuosity and laxity. Multiple changes of position were required to eventually reach the cecum. Once in the cecum, the scope was withdrawn being sure to go before and beyond all mucosal folds and prominences and get an excellent examination. The findings are noted above. At the level of the rectal vault, the scope was retroflexed and the internal anal canal was examined. The scope was straightened and air aspirated from the colon. The instrument was removed from the patient's body and the procedure was concluded. The patient was allowed to awaken from sedation without difficulty and taken to the post-anesthesia care unit in good condition. Total sedation time 31 min Total withdrawal time 8 min Complications: none Condition: stable Disposition: PACU Plan for aftercare: 1. Discharge to home 2. Plan for next colonoscopy in 5 years or as clinically indicated
--- NOTE | 2018-04-14 11:06 | PC.NURSE ---
Patient without complaint this morning. Denies pain or shortness of breath. Oriented to self and situation, unsure of date. Patient's into visit her this morning. Patient requested door closed for extra time to rest at this time. Chronic indwelling catheter remains in place and intact draining clear yellow urine. Continue repositioning and pressure relief efforts with oral care every 2 hours. maintain strict NPO. anticipate possible PEG TUBE placement today. Bed alarm on for safety, continue to follow.
--- NOTE | 2018-04-14 14:45 | PC.NURSE ---
Potassium infusion completed and lab up to draw per orders. Patient just picked up for peg tube placement procedure. Pre-op RN Megan notified of am posassium level and pending result. Narendra () at bedside and followed to procedure. Consent was signed yesterday with patient and in the chart.
[2018-04-14 14:51] LABS: HEMOLYSIS < 15 (0-50); Potassium 3.8 mmol/L (3.4-5.1)
--- NOTE | 2018-04-14 15:09 | PM.PREOP ---
Pre-operative Note Interval Note Pre-op Check: Yes History & Physical Reviewed by Physician and Yes Exam Performed Changes: Yes H&P completed within 30 days and has changed as indicated here:: Patient does not wish to be placed on a ventilator. Due to the complexity of her medical issues and the tenuous nature of her respiratory drive, and anesthesiologist will be available to provide sedation
[2018-04-14] MEDS: LACTATED RINGERS 1,000 ML 42 ML IV (15:32)
[2018-04-14] MEDS: CEFAZOLIN 2 GM/100 ML FROZ.PIGGY IV (15:33)
--- NOTE | 2018-04-14 15:33 | PC.NURSE ---
Patient scheduled to go to ICU after procedure for close monitoring, report given to Rebecca LIGHT.
--- NOTE | 2018-04-14 15:47 | P.PN_ITS ---
Subjective Date Patient Seen: 04/14/18 Time Patient Seen: 15:45 Interval history: Patient seen at bedside. Doing well. Going for Peg tube placement today. No overnight events. Exam Vital Signs (past 8 hours): - 04/14/18 08:00 04/14/18 08:10 04/14/18 12:00 Temperature 98.3 F 98.1 F Pulse Rate 67 64 Respiratory Rate 17 16 Blood Pressure 120/78 150/65 H Pulse Oximetry 95 93 94 04/14/18 15:05 Temperature 97.2 F L Pulse Rate 62 Respiratory Rate 18 Blood Pressure 142/72 H Pulse Oximetry 94 Oxygen Delivery Method Room Air Oxygen Flow Rate 0 Narrative Exam Narrative: General frail cachectic chronically ill-appearing female in no acute distress HEENT normocephalic atraumatic extraocular movement was intact, PERRLA BL Neck supple without LAD Respiratory on anterior auscultation no rales rhonchi or wheezes Cardiovascular regular rhythm S1-S2 was normal there are no lifts heaves rubs murmurs present Abdomen benign bowel sounds active Extremities decreased muscular tone and muscle wasting. Arms chronic extension with hands with contractures Neurologic marked generalized weakness secondary to her multiple sclerosis Psychiatric flat affect Objective Labs Result Diagrams: 04/14/18 05:25 04/14/18 Unknown Labs: Laboratory Results - last 24 hr 04/14/18 04/14/18 04/14/18 05:25 05:25 05:25 WBC 8.6 RBC 3.63 L Hgb 13.0 Hct 36.9 MCV 101.7 H MCH 35.8 H MCHC 35.2 RDW 13.8 Plt Count 96 L Neut % (Auto) 45.2 L Lymph % (Auto) 38.2 [place] % (Auto) 13.5 Eos % (Auto) 2.6 Baso % (Auto) 0.5 Neut # (Auto) 3900 Plt Morphology Comment ... RBC Morphology Normal morphology PT 12.3 INR 1.1 APTT 29 Sodium 144 Potassium 2.8 L Chloride 109 H Carbon Dioxide 27 BUN 5 L Creatinine 0.60 Estimated GFR > 60.0 BUN/Creatinine Ratio 8.3 Glucose 112 H Calcium 8.8 04/14/18 Unknown WBC RBC Hgb Hct MCV MCH MCHC RDW Plt Count Neut % (Auto) Lymph % (Auto) [place] % (Auto) Eos % (Auto) Baso % (Auto) Neut # (Auto) Plt Morphology Comment RBC Morphology PT INR APTT Sodium Potassium 3.8 Chloride Carbon Dioxide BUN Creatinine Estimated GFR BUN/Creatinine Ratio Glucose Calcium Assessment & Plan Plan: Assessment/Plan Narrative: 72yo F with PMH of MS admitted for dysphagia. Found to have UTI. Pending PEG placement 1. UTI - Urine cultures grew pseudomonas - Continue Cefepime 1g BID 2. Dysphagia - Peg tube placement scheduled for today - Continue NPO and D5NS @100cc/hr 3. MS - Continue Copaxone 40mg SubQ 3 times a week 4. Hypothyroidism - Continue Levothyroxine IV Quality VTE Deep Vein Thrombosis/Pulmonary Embolism Present on Admission: No
--- NOTE | 2018-04-14 15:51 | SUR.OPER ---
Supine on padded OR bed, head on pillow, arms secured on padded arm boards at <90 degrees abduction, legs uncrossed, safety belt at thigh, tape over blanket over lower legs.
--- NOTE | 2018-04-14 16:03 | SUR.OPER ---
UNABLE TO PLACE FEEDING TUBE. SEE DR. FRAGOSO POST OP NOTES
--- NOTE | 2018-04-14 16:08 | PM.OP.ENDO ---
Operative Date/Time/Diagnoses Date of procedure: 04/14/18 Time of procedure: 16:00 Pre-op diagnosis: Multiple sclerosis. Unable to swallow to maintain adequate nutrition Post-op diagnosis: same Procedure & Clinicians Study performed: EGD Same procedure as scheduled: No ( unable to safely place a feeding tube due to the position of the transverse colon) Indications: multiple sclerosis. Swallowing mechanism impaired Surgeon: Martin Echeverria Procedure Notes SCOAP/Timeout: performed Procedure in detail: the patient was placed supine on the operating room table and underwent monitored anesthesia care. This was a very cautious light form of sedation due to her underlying medical issues. Topical anesthetic had been applied by me to the oropharynx prior to sedation. A bite block was inserted. Scope was advanced through it into the esophagus under direct vision. The esophagus was irritated and lacked a normal appearing mucosa. The stomach insufflated well. The pyloric channel was widely patent. The duodenal bulb was normal. The scope was brought back into the stomach and I readily identified a point of left maximal light intensity on the anterior abdominal wall. This corresponded to the site of her prior PEG tube with a fluoroscope we examined the area with the stomach insufflated and it was readily apparent that a loop of what appeared to be colon sat right across the stomach. I attempted to move it out of the way by inflating with more air and by placing the patient in steep reverse Trendelenburg. None of this seemed to make a difference. Since the intestine would have to have been anterior to the stomach wall and I would have had to go through it to place a feeding tube Into the stomachthe procedure was abandoned. the scope was removed. The matter was discussed with the patient's . Scope withdrawal time: Not applicable Findings: other findings Specimen(s): none sent Complications: none Plan for aftercare: consider use of a Dobbhoff feeding tube. There is little else that I can recommend. Patient is very high risk for an open procedure of requiring postop per minute ventilation. She also has expressed a desire not to have an open procedure. Given her upper abdominal scar in her prior PEG tube it would probably be quite a challenge. Disposition: PACU
--- NOTE | 2018-04-14 17:40 | PC.NURSE ---
POST-OP received pt at approximately 1700 via bed from PACU. pt had an EGD done for possible PEG placement which was failed due to report. no incisions present on pt. speech slightly slurred. Ox2, forgetful of date with pt occasionally with nonsensical speech. BUE extended, BLE minimal movement. SpO2 at 95% on room air. pt denies any pain at this time. telemetry monitoring placed. frequent repositioning and visual checks.
[2018-04-15] VITALS (7 sets, daily range): BP systolic 136–156; BP diastolic 65–85; PULSE 62–67; RESP 14–18; TEMP 35.8–36.4; O2SAT 93–98
--- NOTE | 2018-04-15 01:35 | PC.NURSE ---
Patient is alert and oriented except to date of month/day of week. Breath sounds with inspiratory crackles bilateral bases with RA sat of 94%; on continuous pulse oximetry. HRR with reading of SR on telemetry. Denies nausea but does state she is hungry and wants breakfast; remains NPO due to severe risk of aspiration and now failed attempt at PEG tube placement. BT present and abdomen is soft but has not had a BM since 04/10. Chronic indwelling catheter is patent with clear yellow urine in bag. Due to MS patient has minimal movement of arms/toes with bilateral hand contractures. Is being repositioned q2h as not able to turn herself. Denies pain. Fall risk score is high and bed alarm is on. Wearing bilateral SCD's.
[2018-04-15] MEDS: DEXTROSE 5%-0.9% NS 1,000 ML 100 ML IV ×2 (04:16→14:32)
[2018-04-15] MEDS: CEFEPIME 1 GM in SODIUM CHLORIDE 0.9% 100 ML 200 ML IV ×2 (05:07→17:12)
[2018-04-15 05:47] LABS: Add Manual Diff / Slide Review NO; Basophils Percent Auto 0.5 % (0-2); Eosinophils Percent Auto 4.4 % (2-4); Hematocrit 37.9 % (36-46); Hemoglobin 13.2 g/dL (12.0-16.0); Lymphocytes Percent Auto 39.6 % (25-40); Mean Corpuscular HGB Conc 34.7 % (30-36); Mean Corpuscular Hemoglobin 35.5 PG (26-34); Mean Corpuscular Volume 102.3 fL (80-100); Monocytes Percent Auto 11.8 % (3-14); Neutrophils Absolute Auto 3800 /uL (3000-5900); Neutrophils Percent Auto 43.7 % (50-75); Red Cell Distribution Width 13.7 % (11.6-14.8); White Blood Cell Count 8.7 X10^3/uL (4.5-11.0)
[2018-04-15 06:02] LABS: Blood Urea Nitrogen 8 mg/dL (7-17); Calcium 9.1 mg/dL (8.4-10.2); Carbon Dioxide 26 mmol/L (22-32); Chloride 109 mmol/L (98-107); Estimated Glomerular Filt Rate > 60.0 mL/min (>60); Glucose 95 mg/dL (80-110); HEMOLYSIS < 15 (0-50); Potassium 3.3 mmol/L (3.4-5.1); Sodium 142 mmol/L (137-145)
[2018-04-15 06:58] LABS: Platelet Count 99 X10^3/uL (150-400)
[2018-04-15] MEDS: SCOPOLAMINE 1 PATCH TOP (10:08)
[2018-04-15] MEDS: LEVOTHYROXINE INJ 100 MCG VIAL 50 MCG IV (10:08)
[2018-04-15] MEDS: ENOXAPARIN 40 MG/0.4 ML SYRINGE SUBCUT (10:09)
[2018-04-15] MEDS: NYSTATIN CREAM 30 GM 1 APPLIC TOP ×2 (13:12→22:08)
--- NOTE | 2018-04-15 14:51 | PM.PN.1 ---
Subjective Date Patient Seen: 04/15/18 Time Patient Seen: 14:51 Interval history: Patient seen at bedside. No overnight events. Patient could not get peg tube placed yesterday because bowel was overlying the insertion region. Patient is high risk for open procedure and therefore advised against it. Had extensive conversation with patient's today and explained to him that patient's quality of life will not improve with keyanna placement for feeding purposes: he would like to now proceed with hospice/comfort care now. Exam Vital Signs (past 8 hours): - 04/15/18 08:00 04/15/18 09:29 04/15/18 12:00 Temperature 96.5 F L 96.4 F L Pulse Rate 62 67 Respiratory Rate 14 16 Blood Pressure 145/65 H 146/81 H Pulse Oximetry 93 93 95 Oxygen Delivery Method Room Air Oxygen Flow Rate 0 Narrative Exam Narrative: General frail cachectic chronically ill-appearing female in no acute distress HEENT normocephalic atraumatic extraocular movement was intact, PERRLA BL Neck supple without LAD Respiratory on anterior auscultation no rales rhonchi or wheezes Cardiovascular regular rhythm S1-S2 was normal there are no lifts heaves rubs murmurs present Abdomen benign bowel sounds active Extremities decreased muscular tone and muscle wasting. Arms chronic extension with hands with contractures Neurologic marked generalized weakness secondary to her multiple sclerosis Psychiatric flat affect Objective Labs Result Diagrams: 04/15/18 05:28 04/15/18 05:28 Labs: Laboratory Results - last 24 hr 04/14/18 04/15/18 04/15/18 Unknown 05:28 05:28 WBC 8.7 RBC 3.70 L Hgb 13.2 Hct 37.9 MCV 102.3 H MCH 35.5 H MCHC 34.7 RDW 13.7 Plt Count 99 L Neut % (Auto) 43.7 L Lymph % (Auto) 39.6 Cameron % (Auto) 11.8 Eos % (Auto) 4.4 H Baso % (Auto) 0.5 Neut # (Auto) 3800 Sodium 142 Potassium 3.8 3.3 L Chloride 109 H Carbon Dioxide 26 BUN 8 Creatinine 0.50 L Estimated GFR > 60.0 BUN/Creatinine Ratio 16.0 Glucose 95 Calcium 9.1 Assessment & Plan Plan: Assessment/Plan Narrative: 72yo F with PMH of MS admitted for dysphagia. Found to have UTI now on antibiotics. Peg placement cancelled due to obstruction of bowel in incision region. Patient is now hospice/ comfort care, as per husbands and patient's decision. 1. UTI - Urine cultures grew pseudomonas - Continue Cefepime 1g BID for 3 more days 2. Dysphagia - Peg tube placement is no longer in plan...Comfort care measures only - Will likely start pleasure feeds when patient goes home with hospice - Continue NPO and D5NS @100cc/hr for now 3. MS - Continue Copaxone 40mg SubQ 3 times a week - Will stop prior to discharge 4. Hypothyroidism - Continue Levothyroxine IV - Will stop prior to discharge Quality VTE Deep Vein Thrombosis/Pulmonary Embolism Present on Admission: No
[2018-04-16 00:20] VITALS: BP 160/83; PULSE 70; RESP 18; TEMP 36.7; O2SAT 94
[2018-04-16 03:16] VITALS: BP 146/78; PULSE 67; RESP 17; TEMP 36.8; O2SAT 94
[2018-04-16] MEDS: CEFEPIME 1 GM in SODIUM CHLORIDE 0.9% 100 ML 200 ML IV (06:21)
[2018-04-16 08:30] VITALS: BP 153/71; PULSE 72; RESP 12; TEMP 36.4; O2SAT 95
[2018-04-16 08:40] VITALS: O2SAT 95
[2018-04-16] MEDS: LEVOTHYROXINE INJ 100 MCG VIAL 50 MCG IV (09:21)
[2018-04-16] MEDS: ENOXAPARIN 40 MG/0.4 ML SYRINGE SUBCUT (09:24)
[2018-04-16] MEDS: NYSTATIN CREAM 30 GM 1 APPLIC TOP (09:25)
--- NOTE | 2018-04-16 11:57 | P.DS_ITS ---
History of Present Illness Date Patient Seen: 04/16/18 Time Patient Seen: 11:49 Chief complaint: SOB HARD TIME SWALLOWING Narrative: 72-year-old female with past medical history of multiple sclerosis, hyperlipidemia, history of CVA, hypothyroidism, neurogenic bladder, physical debility and contractures presented to ED with difficulty swallowing. As per patient's , patient has had trouble swallowing for the past couple of years, contributing it to multiple sclerosis. The patient has since had 2 peg placement in the past with subsequent removal of tubes for reasons unknown. However, for the past week prior to admission, patient has been unable to swallow much as solids or liquids and therefore was brought to ED. Per patient' s patient has also been having a lot of cough with mucus production for the past week. Denied any shortness of breath, palpitations, chest pain. Denied any symptoms. Discharge Providers Date of admission: 04/08/18 23:32 Primary care physician: Rivera South MD Consults: 04/08/18 21:08 Consult to Respiratory Therapy Evaluate & Treat Comment: Physician Instructions: Evaluate and treat 04/09/18 08:31 Consult to Speech Therapy Evaluate & Treat Comment: EVAL DYSPHAGIA Physician Instructions: Evaluate and treat 04/09/18 14:37 Consult to Dietitian, Adult Routine Comment: Reason For Exam: trudi scale score of 13-pt eats 2 meals per day Discharge provider: Vi Edgar MD Summary Discharge Diagnosis: Dysphagia, unable to place PEG tube UTI MS Hypothyroidism Hospital Course: On admission patient's vital signs were stable. Lab work revealed some electrolyte abnormalities including low potassium. The patient was admitted to acute care unit, and IV fluids as well as electrolytes replacement were initiated. She was kept NPO, and surgical consult was placed. Once evaluated by surgery, patient was planned to get a PEG tube placement. However, when patient was taken to procedure room on April 14, 8 was identified on endoscopy that loop of colon was sitting across the stomach and there was no point of surgical looser sent to place a PEG tube. Patient and Family were made aware of the situation. Patient and the family was strongly advised for hospice consult, as previously patient mentioned multiple times that she did not wish to continue with the procedure however changed her mind when the would come around. At this point and patient were more understanding and agreed for hospice consult and subsequently hospice care , comfort care measures only. Patient was discharged home today with home hospice, that will be arriving within 48 hr of discharge. Patient will be going home on pain medication and antianxiety medications. While admitted in the hospital, patient's urine cultures came back positive as Pseudomonas aeruginosa on. She was initially on ceftriaxone treatment since admission, however was broadened to cefepime IV. Today is patient's 3rd day of antibiotics, and will stop them as patient is now comfort care measures only. Patient's hypothyroidism was managed with levothyroxine IV, however will stop as patient is now comfort care only. Status at Discharge Functional status at discharge: bed bound Overall status at discharge: patient is not back to baseline Time Spent with Patient Less than 30 minutes Exam Vital Signs (past 8 hours): - 04/16/18 08:30 04/16/18 08:40 Temperature 97.6 F Pulse Rate 72 Respiratory Rate 12 Blood Pressure 153/71 H Pulse Oximetry 95 95 Oxygen Delivery Method Room Air Oxygen Flow Rate 0 Narrative Exam Narrative: Exam Narrative: General frail cachectic chronically ill- appearing female in no acute distress HEENT normocephalic atraumatic extraocular movement was intact, PERRLA BL Neck supple without LAD Respiratory on anterior auscultation no rales rhonchi or wheezes Cardiovascular regular rhythm S1-S2 was normal there are no lifts heaves rubs murmurs present Abdomen benign bowel sounds active Extremities decreased muscular tone and muscle wasting. Arms chronic extension with hands with contractures Neurologic marked generalized weakness secondary to her multiple sclerosis Psychiatric flat affect Objective Labs Result Diagrams: 04/15/18 05:28 04/15/18 05:28 Discharge Plan Discharge Plan Discharge Problem: Atypical pneumonia Patient Disposition: Hospice - Home Discharge Med Rec/Prescriptions Prescriptions: New morphine 20 mg/5 mL (4 mg/mL) solution 10 mg BUCCAL Q4-6H PRN (Reason: pin) Qty: 100 RF: 0 scopolamine base [Transderm-Scop] 1 mg over 3 days Patch 3 Day 1 patch Topical Q72H 30 Days RF: 0 bisacodyl 10 mg suppository 10 mg OR DAILY PRN (Reason: constipation) Qty: 4 RF: 0 Continue polyethylene glycol 3350 [Miralax] 119 GM powder 17 gm PO Q DAY Qty: 0 RF: 0 Discontinued citalopram [Celexa] 10 MG tablet 10 mg PO QDAY Qty: 0 RF: 0 methenamine hippurate 1 GM tablet 1 gm PO DAILY Qty: 0 RF: 0 levothyroxine [Synthroid] 25 MCG tablet 0.025 mg PO 4XW Qty: 0 RF: 0 ascorbic acid (vitamin C) [Vitamin C] 1,000 mg Tablet 1 g PO Q6H RF: 0 levothyroxine 50 mcg Capsule 38 mcg PO 3XW RF: 0 glatiramer [Copaxone] 40 mg/mL Syringe 40 mg SUBCUT 3XW RF: 0 baclofen 10 MG tablet 10 mg PO BID RF: 0 cephalexin 250 mg Tablet 250 mg PO DAILY RF: 0 nitrofurantoin monohyd/m-cryst 100 mg Capsule 100 mg PO DAILY RF: 0 multivitamin,tx-minerals [Multi-Vitamin HP/Minerals] Capsule 1 cap PO DAILY RF: 0 furosemide 20 mg Tablet 20 mg PO DAILY RF: 0 cholecalciferol (vitamin D3) [Vitamin D3] 2,000 unit Tablet 2,000 unit PO DAILY RF: 0 pravastatin 20 mg Tablet 20 mg PO DAILY RF: 0 melatonin 5 mg Tablet 5 mg PO BEDTIME RF: 0 ibuprofen-diphenhydramine cit [Advil PM] 200-38 mg Tablet 1 cap PO BEDTIME RF: 0 Provider Discharge Instructions Diet: Diet as Tolerated Discharge Data Primary Care Provider: Rivera South V Attending Provider: Sharath Roberson Admmayra Date/Time: 04/08/18 23:32 Quality VTE Deep Vein Thrombosis/Pulmonary Embolism Present on Admission: No
--- NOTE | 2018-04-16 13:57 | PC.NURSE ---
Discharge teaching given to spouse, Al. All questions answered and Hospice to f/u on 04/20. Patient left with all belongings and left in personal vehicle.
--- NOTE | 2018-04-16 16:37 | CM.DPC ---
DCP Cont: Multiple conversations yesterday and today w/pt and spouse re DCP. Spouse decided to take pt home w/hospice after a failed attempt at peg tube placement this week. This [employer] WORKER contacted Patti at [facility] to update w/home hospice plan and a slot was held for pt on [id number]. This [employer]C [employer]OUT WORKER and multiple RNs reviewed what to expect once home w/spouse Al and he inevitably seemed confident in the care of his and med administration prn. Pt went home w/cath, via w/c in Al's pov. LM for [facility] alerting them that pt went home today w/spouse to provide care, he expected a f/u call from [facility] to discuss their visit either on Wednesday or earlier. BEJNAMIN Aguilar
== END 2018-04-16 14:00 | disposition hospice, home (50) | DRG 391 ==
LOC: ED 22:48 → AC 23:33
PROVIDERS: Internal Medicine; Specialist; Admitting Provider Internal Medicine; Emergency Provider Emergency Medicine; PCP Internal Medicine; Visit Provider Internal Medicine
PROC: 0DH63UZ Insertion of Feeding Device into Stomach, Percutaneous Approach (ICD-10-PCS; CPT 43246; principal; 2018-04-14 15:30)
DX: R13.12 Dysphagia, oropharyngeal phase (principal); R53.2 Functional quadriplegia; T83.511A Infection and inflammatory reaction due to indwelling urethral catheter, initial encounter; N39.0 Urinary tract infection, site not specified; E46 Unspecified protein-calorie malnutrition; G35 Multiple sclerosis; N31.9 Neuromuscular dysfunction of bladder, unspecified; E78.5 Hyperlipidemia, unspecified; Z87.891 Personal history of nicotine dependence; E03.9 Hypothyroidism, unspecified; Z68.25 Body mass index [BMI] 25.0-25.9, adult; E87.6 Hypokalemia; B96.5 Pseudomonas (aeruginosa) (mallei) (pseudomallei) as the cause of diseases classified elsewhere
CPT/HCPCS: 36415; 36591; 43235; 71045; 74019; 74230; 76000; 80048; 80053; 81001; 83605; 83735; 83880; 84132; 84145; 84439; 84443; 85025; 85610; 85730; 87040; 87077; 87086; 87186; 92526; 92610; 92611; 94762; 94799; 96365; 99221; 99231; 99283; 99284; J0690; J0692; J1650; J2270; J2704; J3480